=== PATIENT | female | born 1940 | race Caucasian/White ===

== ENCOUNTER → 2017-02-20 | Outpatient (CLI) | payer MEDICARE ==
--- NOTE | 2017-02-20 14:02 | RAD ---
Carotid ultrasound, 02/20/2017: History: Carotid artery stenosis, previous left endarterectomy Duplex evaluation of the carotid arteries in the neck was performed including grayscale, color-flow and spectral Doppler analysis. There is moderate intimal thickening in the common carotid arteries. The right common carotid artery demonstrates abnormal Doppler waveforms with a poor systolic upstroke and a low velocity of approximately 36 cm/s. By comparison the peak systolic velocity in the left common carotid artery is 108 cm/s. These findings suggest proximal stenotic disease. There is moderate atherosclerotic plaquing at the right carotid bifurcation. The plaques are partially calcified. No significant velocity acceleration is seen at or distal to that level to suggest high-grade stenosis. The internal carotid artery Doppler waveforms demonstrate diastolic flow reversal. On the left, there is mild atherosclerotic plaquing at the bifurcation. The peak systolic velocity in the internal carotid artery is 91 cm per sec with an end-diastolic velocity of 20 cm/s. There is no evidence of significant restenosis at the left bifurcation status post carotid endarterectomy. Antegrade flow is evident in the left vertebral artery in the neck. There is reversal of flow in the right vertebral artery. 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 IMPRESSION: 1. No evidence of significant restenosis at the left carotid bifurcation status post endarterectomy. 2. Abnormal low velocity blood flow in the right common carotid artery and intermittent reversal of blood flow in the right internal carotid artery, similar to that seen on 08/09/2014. The findings again suggest innominate or proximal right common carotid artery stenosis. 3. Ongoing reversal of flow in the right vertebral artery, again compatible with right subclavian and/or innominate artery stenosis. 4. CT angiography is suggested for further evaluation of this presumed right proximal stenotic disease, if clinically indicated. Note: Stenosis calculations for CT, MRA and conventional angiography are based upon determination of the distal ICA diameter in accordance with the NASCET methodology. Stenosis calculations for Doppler studies are derived from validated velocity criteria which are known to correlate with NASCET methodology of determining stenosis.
== END | disposition home or self-care (01) ==
LOC: US 10:40
PROVIDERS: ATTEND Family Medicine
DX: I65.23 Occlusion and stenosis of bilateral carotid arteries (principal); I77.1 Stricture of artery
CPT/HCPCS: 93880

== ENCOUNTER → 2017-03-03 | Outpatient (CLI) | payer MEDICARE ==
[~2017-03-03] MED LIST: IOHEXOL 300 MG/ML 75 ML VIAL. IV ONE
--- NOTE | 2017-03-03 16:55 | RAD ---
CTA neck with contrast dated 03/03/17. No comparison available. Clinical Indication: Pre-op to hip surgery. Technical factors: Contiguous helical acquisitions was performed from the aortic arch to the skull base during bolus injection of 75 cc of Omnipaque 300. Images were post processed and reformatted on the 3-D workstation. Findings: There is diffuse atheromatous calcification of the aortic arch. Normal origins of the left subclavian, left common carotid and the innominate artery which further bifurcate into right subclavian and right common carotid artery is seen. Scattered plaquing at the origins of the great vessels is seen. Ectatic left subclavian artery without significant narrowing. The left common carotid artery and its bifurcation appears normal. Ectatic tortuous carotid bulb and proximal left internal carotid artery. The left internal carotid artery is normal throughout its course. No focal stenosis. There is atheromatous calcification of the intracavernous portion. There is diffuse calcification of the innominate artery origin which bifurcates into right subclavian and right common carotid artery. There is diffuse moderate atheromatous calcification at the right subclavian artery origin and proximal subclavian artery estimated at approximately 70%. The distal right subclavian artery appears normal. The right common carotid artery demonstrates scattered atheromatous plaquing. There is extensive atheromatous calcification at the right carotid bulb and proximal internal carotid artery with a approximately 60-70% luminal narrowing. The remainder internal carotid artery is normal in course and caliber throughout however is asymmetrically smaller as compared to the left. Normal bilateral vertebral artery origins with Dominant left vertebral artery. Normal intraforaminal and intradural course is seen. Normal vertebrobasilar confluence. Visualized portion of the lung apices appear clear. Mild emphysematous changes are seen. Structures in the neck appear grossly normal. Normal bilateral thyroid glands. No neck lymphadenopathy or masses seen. Airway is preserved. Both parotid and submandibular salivary glands appear normal. Paranasal sinuses are clear. No abnormal enhancing lesion seen in the brain. Grade 1 anterolisthesis of C3 over C4 and grade 1 retrolisthesis of C5 over C6 with spondylotic changes and multilevel disc degenerative changes. Impression: 1. Scattered atheromatous plaquing involving the aortic arch and origin of great vessels. 2. Moderate atheromatous plaquing involving the right carotid bulb and proximal internal carotid artery with an estimated stenosis of approximately 60-70%. 3. Moderate plaquing in the proximal right superior artery with an estimated stenosis of approximately 70%. PQRS Compliance Statement: Note: Stenosis calculations for CT, MR and conventional angiography are based upon determination of the distal ICA diameter in accordance with the NASCET methodology. Stenosis calculations for doppler studies are derived from validated velocity criteria which are known to correlate with NASCET methodology of determining stenosis. PQRS Compliance Statement: One or more of the following individualized dose reduction techniques were utilized for this examination: 1. Automated exposure control 2. Adjustment of the mA and/or kV according to patient size 3. Use of iterative reconstruction technique
== END | disposition home or self-care (01) ==
LOC: CT 14:21
PROVIDERS: ATTEND Family Medicine
DX: I70.0 Atherosclerosis of aorta (principal); I25.10 Atherosclerotic heart disease of native coronary artery without angina pectoris
CPT/HCPCS: 70498; Q9967

== ENCOUNTER → 2017-11-25 | Outpatient (CLI) | payer MEDICARE ==
[2017-11-25 12:12] LABS: CREATININE 0.7 mg/dL (0.6-1.0); GFR 81.6
--- NOTE | 2017-11-25 15:30 | RAD ---
CTA OF THE NECK WITH AND WITHOUT CONTRAST WITH 3-D RECONSTRUCTION Clinical indications: Follow-up of right internal carotid artery stenosis and right subclavian artery stenosis. History of left carotid endarterectomy and right innominate stent graft. Technique: Noncontrast helical CT scanning of the neck from the lung apices to the base of the skull was performed. An appropriate localizer was identified and used as the point of reference for the region of interest during contrast injection. Following IV infusion of 75 cc of Omnipaque 300, helical CT scanning of the neck from the lung apices through the skullbase was performed. Axial and coronal and sagittal 2-D reconstructions were generated and reviewed on a computer monitor. Using a MIP algorithm, a 3-D reconstructed angiogram was generated and reviewed on a computer monitor. Measurements were made using the NASCET PQRS Compliance Statement: One or more of the following individualized dose reduction techniques were utilized for this examination: 1. Automated exposure control 2. Adjustment of the mA and/or kV according to patient size 3. Use of iterative reconstruction technique Measurements were made using the NASCET criteria. Comparison: CTA of the neck dated February 2017. Findings: The left common carotid and internal carotid and external carotid arteries are patent without significant stenosis. There is mild calcified atheromatous disease of the left carotid bulb and proximal ICA. Calcified atheromatous disease of the intracavernous portion of the left internal carotid artery is seen. There is calcified atheromatous disease of the right carotid bulb and proximal right ICA and ECA. There is an unchanged 60-70% stenosis of the proximal right ICA and 40% stenosis of the proximal right ECA. There is calcified plaque formation within the intracavernous portion of the right ICA. An innominate artery stent graft is present. This extends through calcified plaque narrowing of the origin of the innominate artery from the aortic arch. This has been placed in the interim. There is persistent narrowing of the transverse dimension of the origin of the innominate artery from the aortic arch from the calcified plaque and narrows the lumen to greater than 90%. There is a 50% narrowing due to calcified plaque involving the proximal right subclavian artery. The right vertebral artery is not opacified within the lower portion of the neck which is a new finding. It is opacified within the upper portion of the neck starting at the level of C3. This may be due to retrograde opacification. There is opacification of the proximal aspect of the right vertebral artery from it's origin to the level where it enters the transverse foramen at the level of C6. It is nonopacified from this level to the C3 level. In addition, the proximal aspect that is opacified appears smaller in caliber than it did on the previous study. Left vertebral artery is now dominant and is patent throughout the cervical course all the way up to the vertebral basilar confluence. The left subclavian artery is patent and there is mild calcified plaque of the proximal aspect less than 40%. IMPRESSION: There has been placement of an innominate artery stent graft since the previous study of March 03, 2017. However, there is still tight narrowing of greater than 90% involving the origin of the innominate artery from the aortic arch due to calcified plaque. There is a new finding of narrowing of the proximal right vertebral artery and segmental nonopacification from C3 through C6 segment of the foraminal portion of the cervical spine segment which is a new finding. This could be due to combined low flow from the innominate artery narrowing and retrograde flow down from above with indequate opacification of this segment of the right vertebral artery. Therefore, vertebral artery steal phenomenon may be present. Occlusion in this area is possible as well. Stable 60-70% narrowing of the proximal right ICA. 50% narrowing of the proximal right subclavian artery which has progressed.
== END | disposition home or self-care (01) ==
LOC: CT 11:00
PROVIDERS: ATTEND Surgery Vascular Surgery
DX: I65.21 Occlusion and stenosis of right carotid artery (principal); I10 Essential (primary) hypertension
CPT/HCPCS: 36415; 70498; 82565

== ENCOUNTER → 2018-08-19 | Outpatient (CLI) | payer MEDICARE ==
--- NOTE | 2018-08-19 17:05 | RAD ---
Ankle-brachial indices, 08/19/2018: HISTORY: Leg pain, smoking history, hypertension Resting BAO measurements were obtained at the dorsalis pedis artery levels. The right BAO is 0.80 while the left BAO is 0.71. IMPRESSION: Mildly decreased bilateral resting BAO measurements. Electronically signed by: Vasile Lyon MD (08/19/2018 5:02 PM) [facility]
== END | disposition home or self-care (01) ==
LOC: US 13:55
PROVIDERS: ATTEND Family Medicine
DX: I10 Essential (primary) hypertension (principal); M79.662 Pain in left lower leg; M79.661 Pain in right lower leg; Z87.891 Personal history of nicotine dependence
CPT/HCPCS: 93922

== ENCOUNTER → 2018-08-27 | Outpatient (CLI) | payer MEDICARE ==
--- NOTE | 2018-08-27 16:04 | RAD ---
Bilateral lower extremity venous duplex study 08/27/2018 1:00 PM Clinical History: DX: Bilateral Leg weakness Comparison: None available Technique: Using a combination of real time ultrasound imaging and color-flow and pulse Doppler imaging techniques along with graded compression and augmentation, duplex evaluation of the deep venous system of the both lower extremities was performed. Multiple images were obtained. Findings: There is no sonographic evidence of deep venous thrombosis involving the visualized deep venous structures of either lower extremity. Impression: No evidence of deep venous thrombosis involving either lower extremity Electronically signed by: Krishna Ruiz MD (08/27/2018 4:01 PM) [id number]
== END | disposition home or self-care (01) ==
LOC: US 12:36
PROVIDERS: ATTEND Family Medicine
DX: R29.898 Other symptoms and signs involving the musculoskeletal system (principal); R53.1 Weakness; R22.43 Localized swelling, mass and lump, lower limb, bilateral
CPT/HCPCS: 93970

== ENCOUNTER 2018-09-30 14:17 | Emergency (ER) | payer MEDICARE ==
[~2018-09-30] VITALS: Ht 170.2 cm; Wt 66.7 kg
[2018-09-30] MEDS ORDERED: OXYMETAZOLINE 0.05% NASAL SPRAY 15ML BOTTLE. NS ONE ×2 (14:31→14:45)
--- NOTE | 2018-09-30 14:59 | PHYS DOC ---
Adult General Chief Complaint Chief Complaint: NOSEBLEED HPI HPI 78-year-old female presents with 2-1/2 hour history of a nosebleed. She states she was picking inside of her nose and it started to bleed. She states she is on Plavix. She held pressure to her nose as well as put ice over the bridge of her nose which did seem to get some control of her bleeding. She denies any pain or blunt trauma.[] Review of Systems Review of Systems Constitutional: Denies fever or chills [] Eyes: Denies change in visual acuity, redness, or eye pain [] HENT: Per history of present illness[] Respiratory: Denies cough or shortness of breath [] Cardiovascular: No additional information not addressed in HPI [] GI: Denies abdominal pain, nausea, vomiting, bloody stools or diarrhea [] : Denies dysuria or hematuria [] Musculoskeletal: Denies back pain or joint pain [] Integument: Denies rash or skin lesions [] Neurologic: Denies headache, focal weakness or sensory changes [] Endocrine: Denies polyuria or polydipsia [] All other systems were reviewed and found to be within normal limits, except as documented in this note. Current Medications Current Medications Current Medications Medications (Trade) Dose Ordered Sig/Renetta Start Time Stop Time Status Last Admin Dose Admin Oxymetazoline HCl (Afrin) 2 spray 1X ONCE 09/30/18 14:45 09/30/18 14:46 DC 09/30/18 14:30 2 SPRAY Allergies Allergies Allergies Coded Allergies Type Severity Reaction Last Updated Verified No Known Drug Allergies 03/03/17 No Physical Exam Physical Exam Constitutional: Well developed, well nourished, no acute distress, non-toxic appearance. [] HENT: There are some clots in her left there was some very minimal acute bleeding on the anterior septum. [] Eyes: PERRLA, EOMI, conjunctiva normal, no discharge. [] Neck: Normal range of motion, no tenderness, supple, no stridor. [] Cardiovascular:Heart rate regular rhythm, no murmur [] Lungs & Thorax: Bilateral breath sounds clear to auscultation [] Abdomen: Bowel sounds normal, soft, no tenderness, no masses, no pulsatile masses. [] Skin: Warm, dry, no erythema, no rash. [] Back: No tenderness, no CVA tenderness. [] Extremities: No tenderness, no cyanosis, no clubbing, ROM intact, no edema. [] Neurologic: Alert and oriented X 3, normal motor function, normal sensory function, no focal deficits noted. [] Psychologic: Affect normal, judgement normal, mood normal. [] EKG EKG [] Radiology/Procedures Radiology/Procedures [] Course & Med Decision Making Course & Med Decision Making Pertinent Labs and Imaging studies reviewed. (See chart for details) [ED course: Evaluation reveals a 78-year-old female with a very minor nosebleed. We did clear the clots from her nasal passage and applied to sprays of Afrin in each nostril which did control her bleeding temporarily. However, she ended up needing to be packed so I packed a 7.5 rapid Rhino to the left naris which did alleviate her bleeding..] Dragon Disclaimer Dragon Disclaimer This electronic medical record was generated, in whole or in part, using a voice recognition dictation system. Departure Departure: Impression: Primary Impression: Epistaxis Disposition: 01 HOME, SELF-CARE Referrals: JULIA BALTAZAR MD (PCP) TU VAN DO Sep 30, 2018 14:59
[2018-09-30 15:10] VITALS: BP 120/67
== END 2018-09-30 15:45 | disposition home or self-care (01) ==
LOC: ER 14:17
DX: R04.0 Epistaxis (principal)
CPT/HCPCS: 30901; 99284

== ENCOUNTER → 2018-11-10 | Outpatient (CLI) | payer MEDICARE ==
--- NOTE | 2018-11-10 10:01 | CARD ---
MR#: [id number] Date of Study: 11/10/2018 Ordering Physician: COLBY GLOVER, Referring Physician: COLBY GLOVER, Tech: Alisia Smatr RDCS APPROVED REPORT EXAM: Two-dimensional and M-mode echocardiogram with Doppler and color Doppler. Other Information Quality : AverageHR: 77bpm Rhythm : NSR INDICATION PAD RISK FACTORS Smoking 2D DIMENSIONS RVDd2.9 (2.9-3.5cm)Left Atrium(2D)3.9 (1.6-4.0cm) IVSd1.6 (0.7-1.1cm)Aortic Root(2D)3.3 (2.0-3.7cm) LVDd3.7 (3.9-5.9cm)LVOT Diameter1.9 (1.8-2.4cm) PWd1.3 (0.7-1.1cm)LVDs1.7 (2.5-4.0cm) FS (%) 54.1 %SV50.5 ml LVEF(%)85.6 (>50%) M-Mode DIMENSIONS Left Atrium(MM)3.77 (2.5-4.0cm)Aortic Root3.55 (2.2-3.7cm) Aortic Valve AoV Peak Mike.235.2cm/sAoV VTI52.0cm AO Peak GR.22.1mmHgLVOT Peak Mike.157.8cm/s LVOT VTI 37.27cmAO Mean GR.13mmHg SIN (VMAX)1.18zf2GDE (VTI)1.96cm2 Mitral Valve MV E Piruqgdm434.8cm/sMV E Peak Gr.19mmHg MV DECEL [id number] A Eblbwtol078.0cm/s MV E Mean Gr.7mmHgE/A Ratio0.7 MV A [id number] Pulmonary Valve PV Peak Wlqzgdvh244.8cm/sPV Peak Grad.5mmHg Tricuspid Valve TR P. Fuqggkjp888yc/sRAP BTWETTBX5oxIb TR Peak Gr.31jyLvQDVS79rnQu Pulmonary Vein S1 Aubkmcog50.2cm/sD2 Xszvpkow62.3cm/s LEFT VENTRICLE The left ventricle cavity is small. Proximal septal thickening is noted. The left ventricle is hyperd ynamic. The Ejection Fraction is >70%. There is normal LV segmental wall motion. Transmitral Doppler flow pattern is abnormal. RIGHT VENTRICLE The right ventricle is normal size. There is normal right ventricular wall thickness. The right ventr icular systolic function is normal. ATRIA The left atrium is moderately dilated. The right atrium size is normal. The interatrial septum is int act with no evidence for an atrial septal defect or patent foramen ovale as noted on 2-D or Doppler i maging. AORTIC VALVE The aortic valve is moderately calcified.The aortic valve is trileaflet. Doppler and Color Flow revea led no significant aortic regurgitation. There is no significant aortic valvular stenosis. MITRAL VALVE Mitral annular calcification is severe. There is no evidence of mitral valve prolapse. There is moder ate mitral valve stenosis. Calculated mitral valve area is 1.8 cm2 with maximum pressure gradient of 19.4 mmHg and mean pressure gradient of 7.3 mmHg. Doppler and Color-flow revealed mild mitral regurgi tation. TRICUSPID VALVE The tricuspid valve is normal in structure and function. Doppler and Color Flow revealed trace tricus pid regurgitation.. There is mild pulmonary hypertension. The PA pressure was estimated at 40 mmHg. T here is no tricuspid valve prolapse or vegetation. There is no tricuspid valve stenosis. PULMONIC VALVE Pulmonic valve not well visualized. GREAT VESSELS The aortic root is normal in size. The ascending aorta is normal in size. The IVC is dilated but jeanne apses with inspiration. PERICARDIAL EFFUSION There is no evidence of significant pericardial effusion. Critical Notification Critical Value: No <Conclusion> The left ventricle is hyperdynamic. The Ejection Fraction is >70%. There is normal LV segmental wall motion. There is moderate mitral valve stenosis. Calculated mitral valve area is 1.8 cm2 with maximum pressur e gradient of 19.4 mmHg and mean pressure gradient of 7.3 mmHg. There is mild pulmonary hypertension. The PA pressure was estimated at 40 mmHg. Signed by : Colby Glover, Electronically Approved : 11/10/2018 09:59:50
--- NOTE | 2018-11-10 15:30 | RAD ---
Exam : Carotid Duplex with Grayscale Ultrasound and Spectral and Color Doppler Analysis 11/10/2018 3:09 PM Clinical Indications: Carotid stenosis. Comparison study: CT angiography of the neck November 25, 2017. RS Compliance Statement - Stenosis calculations for CT, MR and conventional angiography are based upon measurement of the distal ICA diameter in accordance with the NASCET methodology. Stenosis calculations for carotid ultrasound studies are derived from validated velocity criteria which are known to correlate with the NASCET methodology. Findings: The common, internal and external carotid arteries were examined by grayscale, color and spectral Doppler ultrasound. Diffuse atherosclerotic vascular disease is noted. Elevated velocities are seen within the proximal right common carotid artery. Reduced diastolic flow again noted in the right common carotid artery. Abnormal waveform morphology is seen in the mid and distal common carotid arteries. Relatively dense obstructive calcification is seen in the right carotid bulb. There are elevated velocities within the proximal right common carotid artery measuring up to 156 cm/s. Reversal of right vertebral artery flow noted. No high-grade visual stenosis is seen on the left. The following are the velocities and ratios in the carotid arteries on both sides: RIGHT ICA PV: 73cm/sec RIGHT CCA PV: 156cm/sec RIGHT ICA ED: 14cm/sec RIGHT IC/CCPV: Less than 2 RIGHT VERTEBRAL: Retrograde flow LEFT ICA PV: 88cm/sec LEFT CCA PV: 115cm/sec LEFT ICA ED: 14cm/sec LEFT IC/CCPV: Less than 2 LEFT VERTEBRAL: antegrade flow <50% ICA Stenosis: PSV < 125cm/s (EDV < 40cm/s; SVR < 2.0) 50-69% ICA Stenosis: PSV < 125-229cm/s (EDV 40-99cm/s; SVR 2.0-3.9) >70% ICA Stenosis: PSV > 230cm/s (EDV >100cm/s; SVR >4.0) Impression: 1.Retrograde flow in the right vertebral artery. Elevated velocities and abnormal waveforms in the right common carotid artery. Review of prior CT demonstrates occlusion or near occlusion in the right innominate artery. This likely persists with ongoing steal phenomenon. If there has been interval intervention, repeat CTA evaluation recommended 2 less than 50 percent stenosis of the left internal carotid artery by ultrasound criterion Electronically signed by: Krishna Ruiz MD (11/10/2018 3:26 PM) [id number]
== END | disposition home or self-care (01) ==
LOC: ECHO 09:03
PROVIDERS: ATTEND Internal Medicine Cardiovascular Disease
DX: I65.23 Occlusion and stenosis of bilateral carotid arteries (principal); I05.2 Rheumatic mitral stenosis with insufficiency; F17.200 Nicotine dependence, unspecified, uncomplicated; I27.20 Pulmonary hypertension, unspecified
CPT/HCPCS: 93306; 93880

== ENCOUNTER → 2018-12-02 | Outpatient (CLI) | payer MEDICARE ==
[~2018-12-02] MED LIST changes: +IOHEXOL 300 MG/ML 50 ML VIAL. IV ONE; -IOHEXOL 300 MG/ML 75 ML VIAL. IV ONE
--- NOTE | 2018-12-02 14:20 | RAD ---
Examination: CT angiography abdominal aorta with bilateral lower extremity runoff study HISTORY: Peripheral arterial disease. COMPARISON: None available Technique: Axial CT angiographic images of the abdominal aorta was performed and bilateral lower extremity runoff study with IV contrast. Coronal and sagittal 3-D MIP reformats are performed Exposure: One or more of the following individualized dose reduction techniques were utilized for this examination: 1. Automated exposure control 2. Adjustment of the mA and/or kV according to patient size 3. Use of iterative reconstruction technique Stenosis calculations for CT, MR, and conventional angiography are based upon measurements of the distal ICA diameter in accordance with the NASCET methodology. Stenosis calculations for carotid ultrasound studies are derived from validated velocity criteria which are known to correlate with the NASCET methodology. FINDINGS: The bibasilar lungs are clear. No evidence of free air identified in the abdomen. Mild decreased attenuation noted in the liver. There is a small 8 mm hyperdensity identified in the inferior right lobe of the liver nonspecific could be a small hemangioma. The visualized spleen, adrenals grossly appears unremarkable. The gallbladder is mildly distended. There is prominent appearing common bile measuring up to 1 cm in transverse dimension. There is minimal prominent appearing pancreatic duct. The small bowel is nondilated. Feces and gas noted in the colon. Severe abdominal aortic atherosclerosis. The celiac artery, superior mesenteric artery are patent. There is moderate atherosclerotic calcification identified at the origin of the celiac artery and the superior mesenteric artery. The inferior mesenteric artery is patent. There is severe atherosclerotic calcifications identified the origin of the left renal artery and moderate atherosclerotic calcification identified without in the right renal artery. The bilateral kidneys enhance symmetrically. There is severe atherosclerotic calcification identified in the bilateral common iliac, external and internal iliac arteries. There is severe calcification of the bilateral common femoral arteries with near complete occlusion of the right common iliac artery with atherosclerotic calcification best visualized on series 5 image #180. There is focal severe atherosclerotic calcifications identified in the proximal left common femoral artery. The mid and distal portions of the common femoral arteries are patent however there is severe atherosclerotic calcifications which limits evaluation. There is severe atherosclerotic calcification of the popliteal artery on the right throughout making evaluation the popliteal artery limited however the distal runoff vessels appears patent with moderate atherosclerotic calcifications bilaterally. There is severe atherosclerotic calcification of the left popliteal artery with patent appearing bilateral distal runoff vessels however evaluation is limited due to a atherosclerotic calcifications. IMPRESSION: 1. Severe atherosclerotic calcifications identified in the aorta, bilateral lower extremity arterial system. There is near complete occlusion and focal atherosclerotic calcifications of the right common femoral artery and the bilateral popliteal arteries however examination is limited due to severe atherosclerosis throughout the bilateral lower extremity arterial system recommend ultrasound for further evaluation for evaluation of velocities and catheter angiography. 2. Mild dilated appearing common bile duct. Distal common bile duct obstruction is not completely excluded. Recommend correlation with liver function tests. Electronically signed by: Carlitos Monroe MD (12/02/2018 2:16 PM) [facility]
--- NOTE | 2018-12-02 14:59 | RAD ---
Examination: CT angiography abdominal aorta with bilateral lower extremity runoff study HISTORY: Peripheral arterial disease. COMPARISON: None available Technique: Axial CT angiographic images of the abdominal aorta was performed and bilateral lower extremity runoff study with IV contrast. Coronal and sagittal 3-D MIP reformats are performed Exposure: One or more of the following individualized dose reduction techniques were utilized for this examination: 1. Automated exposure control 2. Adjustment of the mA and/or kV according to patient size 3. Use of iterative reconstruction technique Stenosis calculations for CT, MR, and conventional angiography are based upon measurements of the distal ICA diameter in accordance with the NASCET methodology. Stenosis calculations for carotid ultrasound studies are derived from validated velocity criteria which are known to correlate with the NASCET methodology. FINDINGS: The bibasilar lungs are clear. No evidence of free air identified in the abdomen. Mild decreased attenuation noted in the liver. There is a small 8 mm hyperdensity identified in the inferior right lobe of the liver nonspecific could be a small hemangioma. The visualized spleen, adrenals grossly appears unremarkable. The gallbladder is mildly distended. There is prominent appearing common bile measuring up to 1 cm in transverse dimension. There is minimal prominent appearing pancreatic duct. The small bowel is nondilated. Feces and gas noted in the colon. Severe abdominal aortic atherosclerosis. The celiac artery, superior mesenteric artery are patent. There is moderate atherosclerotic calcification identified at the origin of the celiac artery and the superior mesenteric artery. The inferior mesenteric artery is patent. There is severe atherosclerotic calcifications identified the origin of the left renal artery and moderate atherosclerotic calcification identified without in the right renal artery. The bilateral kidneys enhance symmetrically. There is severe atherosclerotic calcification identified in the bilateral common iliac, external and internal iliac arteries. There is severe calcification of the bilateral common femoral arteries with near complete occlusion of the right common iliac artery with atherosclerotic calcification best visualized on series 5 image #180. There is focal severe atherosclerotic calcifications identified in the proximal left common femoral artery. The mid and distal portions of the common femoral arteries are patent however there is severe atherosclerotic calcifications which limits evaluation. There is severe atherosclerotic calcification of the popliteal artery on the right throughout making evaluation the popliteal artery limited however the distal runoff vessels appears patent with moderate atherosclerotic calcifications bilaterally. There is severe atherosclerotic calcification of the left popliteal artery with patent appearing bilateral distal runoff vessels however evaluation is limited due to a atherosclerotic calcifications. IMPRESSION: 1. Severe atherosclerotic calcifications identified in the aorta, bilateral lower extremity arterial system. There is near complete occlusion and focal atherosclerotic calcifications of the right common femoral artery and the bilateral popliteal arteries however examination is limited due to severe atheroscle -- rosis throughout the bilateral lower extremity arterial system recommend ultrasound for further evaluation for evaluation of velocities and catheter angiography. 2. Mild dilated appearing common bile duct. Distal common bile duct obstruction is not completely excluded. Recommend correlation with liver function tests. Electronically signed by: Carlitos Monroe MD (12/02/2018 2:16 PM) [facility] DICTATED AND SIGNED BY: CARLITOS MONROE MD DATE: 12/02/18 1403 CC: COLBY GLOVER MD; JULIA BALTAZAR MD [facility]
== END | disposition home or self-care (01) ==
LOC: CT 12:57
PROVIDERS: ATTEND Internal Medicine Cardiovascular Disease
DX: I70.203 Unspecified atherosclerosis of native arteries of extremities, bilateral legs (principal); I74.5 Embolism and thrombosis of iliac artery; I70.0 Atherosclerosis of aorta; I70.8 Atherosclerosis of other arteries; I70.1 Atherosclerosis of renal artery
CPT/HCPCS: 75635

== ENCOUNTER → 2019-02-11 | Outpatient (CLI) | payer MEDICARE ==
[~2019-02-11] MED LIST changes: -IOHEXOL 300 MG/ML 50 ML VIAL. IV ONE; +REGADENOSON 0.4 MG/5 ML DISP.SYRIN. IV ONE
--- NOTE | 2019-02-11 13:25 | RAD ---
MR#: [id number] Date of Study: 02/11/2019 Ordering Physician: COLBY GLOVER, Referring Physician: ИРИНА QUEZADA Tech: BALTAZAR Bruner ARRT (R) (N) APPROVED REPORT Test Type: Pharmacological Stress Nurse/Tech: ALLY Smith Test Indications: cad Cardiac History: See Electronic Medical Record Medications: See Electronic Medical Record Medical History: See Electronic Medical Record Resting ECG: SR. LAFB, ASMI age undetermined Resting Heart Rate: 72 bpm Resting Blood Pressure: 144/60mmHg Pretest Chest Pain: None Nurse/Tech Notes Consent: The procedure was explained to the patient in lay terms. Informed consent was witnessed. Pelon eout was entered into [employer]. History and Stress Test performed by BALTAZAR Bruner ARRT (R) (N) Pharm. Details Pharmacologic stress testing was performed using 0.4mg per 5ml of regadenoson given intravenously ove r 7-10 seconds. Stress Symptoms no cp, no acute changes POST EXERCISE Reason for Termination: Infusion complete Target HR: No Max HR: 92 bpm 75% of Maximum Predicted HR: 122 bpm Exercise duration: 6 min:sec, Stage Max Blood Pressure: 146/60mmHg Blood Pressure response to exercise: Normal blood pressure response during stress. Chest Pain: No. Arrhythmia: No. ST Change: No. INTERPRETATION Stress EKG Conclusion: Baseline EKG showed sinus rhythm with old septal infarct. Nondiagnostic change s at peak stress. No arrhythmias. Imaging Protocol IMAGE PROTOCOL: Rest Tc-99m/stress Tc-99m 1 day Rest: Stress: Viability: Radiopharm.Tc99m HhdmgpsudCc19q Sestamibi Giga69yEw 33mCi Img Date 02/11/2019 02/11/2019 Inj-Img [id number]. 60min. Rest Admin Site:IV - Right AntecubitalAdministrator: BALTAZAR Bruner ARRT (R)(N) Stress Admin Site: IV - Right AntecubitalAdministrator: BALTAZAR Bruner ARRT (R)(N) STRESS DATA End Diast. Vol.123.0mlAv. Heart Rate84.0bpm LVEDV index BSA3.0mlCardiac Output0.2L/min End Syst. Vol.34.0mlCO Index BSA7.5L/min LVESV index BSA1.0mlMyocardial Dasu208.0g Eject. Lqqnmptr21.0% Stress Rates Pk. Fill Rate2.80EDV/secLVtime Pk. Fill 129.05msec Pk. Empty Rate3.56ESV/secLVtime Pk. Imkqz293.76msec 10/29 Pk. Fill1.48EDV/sec Stress Scores Regional WT0.00Summed WT12.00 Regional WM0.00Summed WM3.00 LV Perfusion Scintigraphic images showed small fixed defect involving the apical wall consistent with previous sukhdev cardial infarction without any reversibility. Wall Motion Normal left ventricular systolic function with ejection fraction calculated at 72%. LV Perf. Quant 17 Seg. SSS5.00 17 Seg. SRS4.00 17 Seg. SDS1.00 Stress Defect Extent (% LAD)15.00Rest Defect Extent (% LAD)16.90Rev. Defect Extent (% LAD)0.00 Stress Defect Extent (% LCX) 0.00Rest Defect Extent (% LCX)0.00Rev. Defect Extent (% LCX)0.00 Stress Defect Extent (% RCA)3.30Rest Defect Extent (% RCA)0.00Rev. Defect Extent (% RCA)0.00 Stress Defect Extent (% SUKHDEV)9.60Rest Defect Extent (% SUKHDEV)8.30Rev. Defect Extent (% SUKHDEV)0.40 Conclusion 1. Regadenoson cardioisotope stress test showed small apical wall infarct without any ischemia. 2. Normal left ventricular systolic function with ejection fraction calculated at 72%. 3. Low risk for cardiac events. Signed by : Robert Walsh, Electronically Approved : 02/11/2019 13:25:40
== END | disposition home or self-care (01) ==
LOC: NM 07:43
PROVIDERS: ATTEND Internal Medicine Cardiovascular Disease
DX: I25.10 Atherosclerotic heart disease of native coronary artery without angina pectoris (principal); I25.2 Old myocardial infarction; I10 Essential (primary) hypertension; Z79.01 Long term (current) use of anticoagulants; Z87.891 Personal history of nicotine dependence
CPT/HCPCS: 78452; 93017; A9500; J2785; 96375; 96376

== ENCOUNTER → 2019-05-17 | Outpatient (CLI) | payer MEDICARE ==
[2019-05-17 09:08] LABS: BASO % 0 % (0-3); EOS % 0 % (0-3); HEMATOCRIT 28.9 % (36.0-47.0); HEMOGLOBIN 9.5 g/dL (12.0-15.5); LYMPH # 0.8 x10^3/uL (1.0-4.8); LYMPH % 11 % (24-48); MEAN CORPUSCULAR HEMOGLOBIN 31 pg (25-35); MEAN CORPUSCULAR HGB CONC 33 g/dL (31-37); MEAN CORPUSCULAR VOLUME 95 fL (79-100); MONO # 0.6 x10^3/uL (0.0-1.1); MONO % 9 % (0-9); NEUT # 5.8 x10^3uL (1.8-7.7); NEUT % 80 % (31-73); PLATELET COUNT 335 x10^3/uL (140-400); RED BLOOD COUNT 3.06 x10^6/uL (3.50-5.40); RED CELL DISTRIBUTION WIDTH 15.2 % (11.5-14.5); WHITE BLOOD COUNT 7.2 x10^3/uL (4.0-11.0)
== END | disposition home or self-care (01) ==
LOC: LAB 08:12
PROVIDERS: ATTEND Internal Medicine
DX: M86.9 Osteomyelitis, unspecified (principal)
CPT/HCPCS: 36415; 85025

== ENCOUNTER 2019-07-12 14:06 | Emergency (ER) | payer MEDICARE ==
[~2019-07-12] VITALS: Ht 170.2 cm; Wt 76.0 kg
[2019-07-12] MEDS ORDERED: IPRATRPIUM/ALBUTEROL 0.5/2.5MG 3 ML NEBU. NEB ONE (14:15)
[2019-07-12 14:39] LABS: BASO % 0 % (0-3); EOS % 0 % (0-3); HEMATOCRIT 35.4 % (36.0-47.0); HEMOGLOBIN 11.4 g/dL (12.0-15.5); LYMPH # 0.6 x10^3/uL (1.0-4.8); LYMPH % 10 % (24-48); MEAN CORPUSCULAR HEMOGLOBIN 31 pg (25-35); MEAN CORPUSCULAR HGB CONC 32 g/dL (31-37); MEAN CORPUSCULAR VOLUME 95 fL (79-100); MONO # 0.5 x10^3/uL (0.0-1.1); MONO % 9 % (0-9); NEUT # 5.2 x10^3uL (1.8-7.7); NEUT % 82 % (31-73); PLATELET COUNT 323 x10^3/uL (140-400); RED BLOOD COUNT 3.72 x10^6/uL (3.50-5.40); RED CELL DISTRIBUTION WIDTH 17.6 % (11.5-14.5); WHITE BLOOD COUNT 6.3 x10^3/uL (4.0-11.0)
[2019-07-12 14:45] LABS: BGAS PH 7.36 (7.35-7.45)
[2019-07-12] MEDS ORDERED: FUROSEMIDE 40 MG/4 ML VIAL IVP ONE (14:45)
[2019-07-12] MEDS ORDERED: methylPREDNISolone SOD SUCC PF 125 MG/2 ML VIAL. IV ONE (14:45)
--- NOTE | 2019-07-12 14:48 | PHYS DOC ---
Past History Past Medical History: Hypertension Past Surgical History: Hip Replacement Alcohol Use: None Drug Use: None Adult General Chief Complaint Chief Complaint: short of breath HPI HPI 78-year-old female arrives by POV with shortness of breath. Patient states that she has had worsening shortness of breath for the last few days. She is also had increased lower extremity swelling up into her upper legs. Patient does not official diagnosis of COPD, has been a lifelong smoker. She is speaking in complete sentences. She is able to ambulate with her walker. She denies fever or chills. She denies chest pain or diaphoresis. Review of Systems Review of Systems Constitutional: Denies fever or chills [] Eyes: Denies change in visual acuity, redness, or eye pain [] HENT: Denies nasal congestion or sore throat [] Respiratory: Shortness of breath [] Cardiovascular: No additional information not addressed in HPI. Lower extremity swelling [] GI: Denies abdominal pain, nausea, vomiting, bloody stools or diarrhea [] : Denies dysuria or hematuria [] Musculoskeletal: Denies back pain or joint pain [] Integument: Denies rash or skin lesions [] Neurologic: Denies headache, focal weakness or sensory changes [] Endocrine: Denies polyuria or polydipsia [] All other systems were reviewed and found to be within normal limits, except as documented in this note. Current Medications Current Medications Current Medications Medications (Trade) Dose Ordered Sig/Renetta Start Time Stop Time Status Last Admin Dose Admin Albuterol/ Ipratropium (Duoneb) 3 ml 1X ONCE 07/12/19 14:15 07/12/19 14:29 DC Furosemide (Lasix) 40 mg 1X ONCE 07/12/19 14:45 07/12/19 14:46 Allergies Allergies Allergies Coded Allergies Type Severity Reaction Last Updated Verified No Known Drug Allergies 03/03/17 No Physical Exam Physical Exam Constitutional: Well developed, well nourished, no acute distress, non-toxic appearance. [] HENT: Normocephalic, atraumatic, bilateral external ears normal, oropharynx moist, no oral exudates, nose normal. [] Eyes: PERRLA, EOMI, conjunctiva normal, no discharge. [] Neck: Normal range of motion, no tenderness, supple, no stridor. [] Cardiovascular:Heart rate regular rhythm, no murmur [] Lungs & Thorax: Bilateral breath sounds with diffuse expiratory wheezing and overall decreased breath sounds.[] Abdomen: Bowel sounds normal, soft, no tenderness, no masses, no pulsatile masses. [] Skin: Warm, dry, no erythema, no rash. [] Back: No tenderness, no CVA tenderness. [] Extremities: No tenderness, no cyanosis, no clubbing, ROM intact, no edema. [] Neurologic: Alert and oriented X 3, normal motor function, normal sensory function, no focal deficits noted. [] Psychologic: Affect normal, judgement normal, mood normal. [] Current Patient Data Lab Results Laboratory Tests Test 07/12/19 14:17 White Blood Count 6.3 x10^3/uL (4.0-11.0) Red Blood Count 3.72 x10^6/uL (3.50-5.40) Hemoglobin 11.4 g/dL (12.0-15.5) L Hematocrit 35.4 % (36.0-47.0) L Mean Corpuscular Volume 95 fL (79-100) Mean Corpuscular Hemoglobin 31 pg (25-35) Mean Corpuscular Hemoglobin Concent 32 g/dL (31-37) Red Cell Distribution Width 17.6 % (11.5-14.5) H Platelet Count 323 x10^3/uL (140-400) Neutrophils (%) (Auto) 82 % (31-73) H Lymphocytes (%) (Auto) 10 % (24-48) L Monocytes (%) (Auto) 9 % (0-9) Eosinophils (%) (Auto) 0 % (0-3) Basophils (%) (Auto) 0 % (0-3) Neutrophils # (Auto) 5.2 x10^3uL (1.8-7.7) Lymphocytes # (Auto) 0.6 x10^3/uL (1.0-4.8) L Monocytes # (Auto) 0.5 x10^3/uL (0.0-1.1) Eosinophils # (Auto) 0.0 x10^3/uL (0.0-0.7) Basophils # (Auto) 0.0 x10^3/uL (0.0-0.2) EKG EKG [] Radiology/Procedures Radiology/Procedures [] Impressions: EXAM: AP View of the chest DATE: 07/12/2019 2:15 PM INDICATION: Shortness of breath COMPARISON: No Prior FINDINGS: Moderate cardiac megaly. Atherosclerotic calcifications of the tortuous aorta are seen. Bilateral pleural effusions. Lung base airspace opacities are seen. Interstitial prominence bilaterally. No pneumothorax. IMPRESSION: 1. Primarily with bilateral pleural effusions, interstitial prominence and perihilar predominant airspace opacities likely from pulmonary edema. 2. Bibasilar airspace opacities, favored to represent atelectasis given the pleural effusions although superimposed infection/consolidative process such as pneumonia would have similar appearance. Electronically signed by: Sammy Doe MD (07/12/2019 3:13 PM) [facility] DICTATED AND SIGNED BY: SAMMY DOE MD DATE: 07/12/19 [id number] CC: CHANDLER PAT DO; JULIA BALTAZAR MD ~ Course & Med Decision Making Course & Med Decision Making Pertinent Labs and Imaging studies reviewed. (See chart for details) On arrival, the patient's oxygen saturation was in the mid 60s. She increased on 15 L 100%. Her ABG shows pH is 7.357, CO2 58.3, O2 58. We will try to titrate her oxygen to affect. Patient appears to be suffering from pulmonary edema due to her excess fluid. I have ordered 40 mg of Lasix by IV. Her chest x-ray is suggestive of the same. See official report for details. Patient's proBNP is over 2600. She is currently on 15 L of 40% oxygen were 92% O2 sat. I'm concerned that this may suppress her respiratory drive. We will lower her supplemental oxygen and she for an O2 sat of 89-90% versus 92. I will admit her to the hospital. I spoke with the hospitalist at [facility], Dr. Chris and he has accepted the patient for transfer and admission to the ICU. Patient is in agreement with this plan. [] Dragon Disclaimer Dragon Disclaimer This electronic medical record was generated, in whole or in part, using a voice recognition dictation system. Departure Departure: Impression: Primary Impression: Pulmonary edema Additional Impression: CHF exacerbation Disposition: XFER SHT-TRM HOSP Condition: GUARDED Referrals: JULIA BALTAZAR MD (PCP) Problem Qualifiers Primary Impression: Pulmonary edema Chronicity: acute Qualified Codes: J81.0 - Acute pulmonary edema Additional Impression: CHF exacerbation Heart failure type: systolic Qualified Codes: I50.23 - Acute on chronic systolic (congestive) heart failure CHANDLER PAT DO Jul 12, 2019 14:48
--- NOTE | 2019-07-12 15:16 | RAD ---
EXAM: AP View of the chest DATE: 07/12/2019 2:15 PM INDICATION: Shortness of breath COMPARISON: No Prior FINDINGS: Moderate cardiac megaly. Atherosclerotic calcifications of the tortuous aorta are seen. Bilateral pleural effusions. Lung base airspace opacities are seen. Interstitial prominence bilaterally. No pneumothorax. IMPRESSION: 1. Primarily with bilateral pleural effusions, interstitial prominence and perihilar predominant airspace opacities likely from pulmonary edema. 2. Bibasilar airspace opacities, favored to represent atelectasis given the pleural effusions although superimposed infection/consolidative process such as pneumonia would have similar appearance. Electronically signed by: Sammy Fuentes MD (07/12/2019 3:13 PM) [facility]
[2019-07-12 15:26] LABS: ALBUMIN 2.9 g/dL (3.4-5.0); ALBUMIN/GLOBULIN RATIO 0.9 (1.0-1.7); CALCIUM 9.3 mg/dL (8.5-10.1); CREATININE 1.1 mg/dL (0.6-1.0); GFR 48.3; POTASSIUM 3.3 mmol/L (3.5-5.1); TOTAL BILIRUBIN 0.3 mg/dL (0.2-1.0); TOTAL PROTEIN 6.2 g/dL (6.4-8.2)
[2019-07-12 16:31] LABS: BACTERIA,URINE MANY /HPF (0-FEW); BILIRUBIN,URINE NEG (NEG); CLARITY,URINE HAZY; COLOR,URINE YELLOW; GLUCOSE,URINE NEG (NEG); NITRITE,URINE POS (NEG); RBC,URINE OCC /HPF (0-2); UROBILINOGEN,URINE 0.2 mg/dL (0.2 mg/dL); WBC,URINE 20-40 /HPF (0-4)
[2019-07-12 16:32] LABS: SQUAMOUS EPITHELIAL CELL,UR FEW /LPF; YEAST,URINE PRESENT /HPF
--- NOTE | 2019-07-12 16:49 | EKG ---
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
[2019-07-12] MEDS ORDERED: POTASSIUM CHLORIDE 20 MEQ TABLET.ER. PO ONE (19:00)
[2019-07-12] MEDS ORDERED: ALBUTEROL SULFATE 8GM INHALER. INH ONE (20:45)
[2019-07-12 22:54] VITALS: BP 131/71
== END 2019-07-12 22:54 | disposition short-term general hospital (02) ==
LOC: ER 14:06
DX: I11.0 Hypertensive heart disease with heart failure (principal); I50.23 Acute on chronic systolic (congestive) heart failure; Z98.890 Other specified postprocedural states
CPT/HCPCS: 36415; 51702; 71045; 80053; 81001; 82803; 83880; 84484; 85025; 87086; 93005; 94640; 96374; 96375; 99285; J1940; J2930; J7613; J7620

== ENCOUNTER → 2019-08-30 | Outpatient (CLI) | payer MEDICARE ==
--- NOTE | 2019-08-30 13:04 | RAD ---
EXAM: Chest, 2 views. HISTORY: Diastolic heart failure. COMPARISON: 07/12/2019 FINDINGS: 2 views of chest are obtained. There is no infiltrate, pleural effusion or pneumothorax. There is a stable prominent cardiac silhouette. There is dense calcification of the mitral valve annulus. There is a tortuous thoracic aorta. There is hyperinflation likely due to emphysema. There are few calcified granulomas. IMPRESSION: 1. No acute pulmonary finding. 2. Hyperinflation suggesting emphysema. 3. Stable prominent cardiac silhouette. Electronically signed by: Isabell Cunha MD (08/30/2019 1:01 PM) [place] [id number]
== END | disposition home or self-care (01) ==
LOC: DXRAD 10:35
PROVIDERS: ATTEND Internal Medicine Cardiovascular Disease
DX: I34.8 Other nonrheumatic mitral valve disorders (principal); J84.10 Pulmonary fibrosis, unspecified; I50.30 Unspecified diastolic (congestive) heart failure
CPT/HCPCS: 71046

== ENCOUNTER → 2020-11-24 | Outpatient (CLI) | payer MEDICARE ==
--- NOTE | 2020-11-30 08:15 | RAD ---
PROCEDURE: MG 2D BILAT SCREENING HISTORY: The patient is 80 years old and is seen for Reason: SCREENING / Spl. Instructions: / Histor y: . COMPARISON: 07/29/2019 TECHNIQUE: CC and MLO views of both breasts were obtained. Images were processed by the iFit computer-aided detection system. DENSITY: The breast parenchyma is heterogeneously dense. This may lower the sensitivity of mammograph y. FINDINGS: No developing mass, suspicious calcifications or architectural distortion. IMPRESSION: Negative. No evidence of malignancy. Recommend annual screening mammograms per [employer] guidelines. BI-RADS category 1 Negative Patient entered into a reminder system for annual screening mammogram. Electronically signed by: Marium Perkins MD (11/30/2020 8:12 AM) [id number]
== END ==
LOC: MAMMO 09:18
PROVIDERS: ATTEND Family Medicine
DX: Z12.31 Encounter for screening mammogram for malignant neoplasm of breast (principal)
CPT/HCPCS: 77067

== ENCOUNTER 2021-04-10 16:29 | Emergency (ER) | payer MEDICARE ==
[~2021-04-10] VITALS: Ht 170.2 cm; Wt 76.0 kg
[2021-04-10] MEDS ORDERED: LIDOCAINE 1%/EPI 1:100,000 20 ML VIAL. IJ ONE (16:45)
--- NOTE | 2021-04-10 17:07 | RAD ---
2 view study of the right tibia and fibula Clinical indications: Laceration. Evaluation for retained foreign body. FINDINGS: No acute fracture or dislocation or lytic process is seen. There are radiopaque nodules wit hin the deep central aspect of the proximal calf. There is one radiopacity which has a more linear tr am tract appearance. Therefore, this may represent vascular calcifications. Correlation with location of laceration injury is recommended to exclude foreign body in this area. There is increased focal d ensity of the lateral aspect of the right proximal to mid calf. This may represent soft tissue hemato ma associated with the laceration injury. There are radiopacities of the right knee area which appear s to represent an overlying garment. IMPRESSION: No acute fracture. Radiopacities of the upper central calf. See discussion above. Clinical correlation is needed. Soft tissue hematoma. Electronically signed by: Sunny Hamlin MD (04/10/2021 5:05 PM) [id number]
[2021-04-10] MEDS ORDERED: NEOMY/BACITR/POLYMYXIN OINT PACKET. TP ONE (17:37)
[2021-04-10] MEDS ORDERED: DIPH,PERTUSS(ACELL),TET VAC/PF 0.5 ML SYRINGE. VAX IM ONE ×2 (17:37→17:45)
--- NOTE | 2021-04-10 17:43 | PHYS DOC ---
Past History Past Medical History: CHF, COPD, Hypertension Past Surgical History: Hip Replacement Smoking: Cigarettes Additional Smoking Information: 10/28 PPD Alcohol Use: None Drug Use: None General Adult EDM: Chief Complaint: LACERATION/AVULSION HPI: HPI: 80-year-old female presents with report of laceration to anterior aspect of right dickinson which occurred at approximately 1030 this morning. Patient reports she gotten out of her car at the liquor store and thinks she caught the corner of the door with her leg. Patient noticed on returning back to her vehicle that she was bleeding. Patient denies use of blood thinners. Reports last tetanus shot greater than 5 years ago. Review of Systems: Review of Systems: Constitutional: Denies fever or chills Musculoskeletal: Denies back pain or joint pain Integument: Reports laceration to right anterior lower extremity Neurologic: Denies headache, focal weakness or sensory changes Complete systems were reviewed and found to be within normal limits, except as documented in this note. Current Medications: Current Meds: Current Medications Medications (Trade) Dose Ordered Sig/Renetta Start Time Stop Time Status Last Admin Dose Admin Lidocaine/ Epinephrine (Xylocaine 1%-Epi 1:100,000) 20 ml 1X ONCE 04/10/21 16:45 04/10/21 17:07 DC Allergies: Allergies: Allergies Coded Allergies Type Severity Reaction Last Updated Verified No Known Drug Allergies 03/03/17 No Physical Exam: PE: Constitutional: Well developed, well nourished, no acute distress, non-toxic appearance HENT: Normocephalic, atraumatic Eyes: Conjunctiva normal, no discharge Neck: Normal range of motion, supple Lungs & Thorax: No respiratory distress, equal chest rise and fall Abdomen: Soft, no tenderness Skin: Warm, dry, no erythema, 10 cm flap laceration to right anterior dickinson Extremities: No tenderness, ROM intact, no edema Neurologic: Alert and oriented X 3, no focal deficits noted Psychologic: Affect normal, judgment normal Current Patient Data: Vital Signs: Vital Signs Date Time Temp Pulse Resp B/P (MAP) Pulse Ox O2 Delivery O2 Flow Rate FiO2 04/10/21 16:46 97.5 88 26 140/66 (90) 88 Room Air EKG: EKG: [] Radiology/Procedures: Radiology/Procedures: PROCEDURE: TIBIA FIBULA RIGHT 2 view study of the right tibia and fibula Clinical indications: Laceration. Evaluation for retained foreign body. FINDINGS: No acute fracture or dislocation or lytic process is seen. There are radiopaque nodules within the deep central aspect of the proximal calf. There is one radiopacity which has a more linear tram tract appearance. Therefore, this may represent vascular calcifications. Correlation with location of laceration injury is recommended to exclude foreign body in this area. There is increased focal density of the lateral aspect of the right proximal to mid calf. This may represent soft tissue hematoma associated with the laceration injury. There are radiopacities of the right knee area which appears to represent an overlying garment. IMPRESSION: No acute fracture. Radiopacities of the upper central calf. See discussion above. Clinical correlation is needed. Soft tissue hematoma. Electronically signed by: Sunny Hamlin MD (04/10/2021 5:05 PM) [id number] Heart Score: C/O Chest Pain: N/A Course & Med Decision Making: Course & Med Decision Making Pertinent Imaging studies reviewed. (See chart for details) Patient presents with laceration to right anterior lower extremity. Tetanus updated. X-ray obtained without signs of retained foreign body. Laceration cleaned, irrigated, repaired, and dressed. Fernando bandage applied for protection of sutured wound and prevention of seroma. Patient stable for discharge with outpatient follow-up with PCP. Discussed findings and plan with patient, who acknowledges understanding and agreement. Ray Disclaimer: Ray Disclaimer: This electronic medical record was generated, in whole or in part, using a voice recognition dictation system. Splinting Splinting : Location: Right LE Pre-Made Type: FERNANDO bandage Pre-Proc Neuro Vasc Exam: normal Post-Proc Neuro Vasc Exam: normal, unchanged from pre-exam Laceration/Wound Repair Laceration/Wound Repair : Wound Location: lower extremity (right) Wound's Depth, Shape: flap Wound Length (cm): 10 Wound Explored: no foreign body removed Irrigated w/ Saline (ccs): 200 Anesthesia: Lidocaine w/ Epi (1%) Volume Anesthetic (ccs): 8 Wound Debrided: moderate Wound Repaired With: sutures Suture Size/Type: 4:0, nylon Number of Sutures: 15 (simple interrupted x 12horizontal mattress x 3) Sterile Dressing Applied?: Yes Splint Applied?: Yes Type of Splint Applied: FERNANDO bandage Progress Verbal consent obtained. Time out performed. Hand hygiene utilized. Wound cleaned with ChloraPrep. Anesthesia obtained via a 25-gauge hypodermic needle with (8) mL's of lidocaine 2% with epinephrine. Copious irrigation performed. Wound well approximated with 4-0 Nylon x 3 horizontal mattress and 12 simple interrupted sutures. Empiric antibiotic ointment applied prior to sterile dressing. FERNANDO bandage applied for protection and compression of sutured wound. Patient tolerated procedure well and without difficulty. Departure Departure: Impression: Primary Impression: Laceration Disposition: HOME / SELF CARE / HOMELESS Condition: STABLE Referrals: JULIA BALTAZAR MD (PCP) Patient Instructions: Laceration Care, Adult, [id number] Additional Instructions: Do not soak your wound. You may shower. Clean wound daily with soap and water. Change dressing 2 times daily. Use over the counter antibiotic ointment with each dressing change. Apply FERNANDO bandage over dressings to help protect sutures and prevent a seroma (collection of fluid) from occurring. Sutures need to be removed in 10-14 days. Present to your family doctor or local urgent care for removal. You may also present to the ED but it will be an additional visit/charge. After suture removal you may use Vitamin E ointment to soften the wound and prevent scarring. May use over the counter Tylenol and/or Ibuprofen for pain or discomfort. JANETH SAWYER DO Apr 10, 2021 17:43
[2021-04-10 17:55] VITALS: BP 111/72
== END 2021-04-10 17:55 | disposition home or self-care (01) ==
LOC: ER 16:29
DX: S81.811A Laceration without foreign body, right lower leg, initial encounter (principal); J44.9 Chronic obstructive pulmonary disease, unspecified; I11.0 Hypertensive heart disease with heart failure; I50.9 Heart failure, unspecified; F17.210 Nicotine dependence, cigarettes, uncomplicated; W26.8XXA Contact with other sharp object(s), not elsewhere classified, initial encounter; Y93.89 Activity, other specified; Y92.89 Other specified places as the place of occurrence of the external cause; Y99.8 Other external cause status
CPT/HCPCS: 12004; 73590; 90471; 90715; 99283

== ENCOUNTER 2021-04-13 13:34 | Inpatient (IN) | payer MEDICARE ==
[~2021-04-13] VITALS: Ht 170.2 cm; Wt 66.4 kg
[2021-04-13] VITALS (8 sets, daily range): BP systolic 108–138; BP diastolic 55–103
--- NOTE | 2021-04-13 14:09 | PHYS DOC ---
Past History Past Medical History: CHF, COPD, Hypertension Past Surgical History: Hip Replacement Smoking: Cigarettes Alcohol Use: None Drug Use: None General Adult EDM: Chief Complaint: SHORTNESS OF BREATH HPI: HPI: 80-year-old female presents with 2-day history of shortness of breath. The patient feels like she may be wheezing. She definitely feels like she is more short of breath yesterday and worse again today. The patient has a neighbor who checks on her and helps care for her. When she came by today and looked at the patient's right lower leg sutures she was concerned about cellulitis. The patient had the sutures placed in this facility a couple of days ago after a laceration. There was delayed closing. Patient denies fever or chills. She denies chest pain or diaphoresis. He has an existing dry skin disorder. Review of Systems: Review of Systems: Constitutional: Denies fever or chills Eyes: Denies change in visual acuity HENT: Denies nasal congestion or sore throat Respiratory: shortness of breath Cardiovascular: Denies chest pain or edema GI: Denies abdominal pain, nausea, vomiting, bloody stools or diarrhea : Denies dysuria Musculoskeletal: Denies back pain or joint pain Integument: Laceration with sutures right lower leg, redness Neurologic: Denies headache, focal weakness or sensory changes Endocrine: Denies polyuria or polydipsia Lymphatic: Denies swollen glands Psychiatric: Denies depression or anxiety Allergies: Allergies: Allergies Coded Allergies Type Severity Reaction Last Updated Verified No Known Drug Allergies 03/03/17 No Physical Exam: PE: Constitutional: Well developed, well nourished, no acute distress, non-toxic appearance. [] HENT: Normocephalic, atraumatic, bilateral external ears normal, oropharynx moist, no oral exudates, nose normal. [] Eyes: PERRLA, EOMI, conjunctiva normal, no discharge. [] Neck: Normal range of motion, no tenderness, supple, no stridor. [] Cardiovascular: Heart rate 112, regular rhythm, no murmur [] Lungs & Thorax: Bilateral breath sounds diminished with expiratory wheezing throughout [] Abdomen: Bowel sounds normal, soft, no tenderness, no masses, no pulsatile masses. [] Skin: Extremely dry and scaly skin. Right lower leg cellulitis with erythema and warmth inferior to the wound. [] Back: No tenderness, no CVA tenderness. [] Extremities: No tenderness, no cyanosis, no clubbing, ROM intact, no edema. [] Neurologic: Alert and oriented X 3, normal motor function, normal sensory function, no focal deficits noted. [] Psychologic: Affect normal, judgement normal, mood normal. [] EKG: EKG: Irregular rhythm, rate 140, leftward axis, bundle branch block, no ST elevation or depression. [] Radiology/Procedures: Radiology/Procedures: [] Impressions: EXAM: CHEST 1 VIEW History: Shortness of breath COMPARISON: 08/30/2019 TECHNIQUE: Single portable radiograph of the chest FINDINGS: Mild cardiomegaly. Mild diffuse prominent bilateral interstitial lung markings likely congestive changes. Mild bibasilar lung airspace opacities likely atelectasis or infiltrates with small bilateral pleural effusions. IMPRESSION: 1. Mild congestive changes. 2. Mild bibasilar lung airspace opacities likely atelectasis or infiltrates with small bilateral pleural effusions. Electronically signed by: Carlitos Monroe MD (04/13/2021 2:41 PM) [id number] DICTATED AND SIGNED BY: CARLITOS MONROE MD DATE: 04/13/21 1437 CC: CHANDLER PAT DO; JULIA BALTAZAR MD ~MTH0 0 Heart Score: C/O Chest Pain: N/A Risk Factors: Risk Factors: DM, Current or recent (<one month) smoker, HTN, HLP, family history of CAD, obesity. Risk Scores: Score 0 - 3: 2.5% MACE over next 6 weeks - Discharge Home Score 4 - 6: 20.3% MACE over next 6 weeks - Admit for Clinical Observation Score 7 - 10: 72.7% MACE over next 6 weeks - Early Invasive Strategies Course & Med Decision Making: Course & Med Decision Making Pertinent Labs and Imaging studies reviewed. (See chart for details) The patient's EKG showed a rate of 140 with a regular rhythm. Patient does not seem to have a history of atrial fibrillation. She denies such history. We will give 20 mg of Cardizem IV. We will also give the patient a liter normal saline despite her CHF history. Her lower leg does appear to have some cellulitis extending from the wound so we will cover her with Rocephin in the ED. patient's heart rate slowed down a little bit and it does look like A. fib. We will start a Cardizem drip. I will cut out the patient's fluid resuscitation at 1 L given her CHF history. Chest x-ray is suggestive of congestive changes. I will give her 40 mg of Lasix IV. I spoke with Dr. Rowe and he has accepted the patient for admission to the ICU. The patient is in agreement with this plan. [] Dragon Disclaimer: Dragon Disclaimer: This electronic medical record was generated, in whole or in part, using a voice recognition dictation system. Departure Departure: Impression: Primary Impression: Atrial fibrillation Qualified Codes: I48.91 - Unspecified atrial fibrillation Additional Impressions: CHF (congestive heart failure) Qualified Codes: I50.23 - Acute on chronic systolic (congestive) heart failure Cellulitis, leg Qualified Codes: L03.115 - Cellulitis of right lower limb Disposition: ADMITTED INPATIENT Admitting Physician: Tracey Rowe Condition: STABLE Referrals: JULIA BALTAZAR MD (PCP) CHANDLER PAT DO Apr 13, 2021 14:09
--- NOTE | 2021-04-13 14:11 | EKG ---
[address] [address] Test Date: 2021-04-13 Test Time: 13:49:10 Pat Name: RUTH PRINGLE Department: Room: Gender: F [employer] Operator: MILAGROS : 1940 Requested By: CHANDLER PAT Order Number: [id number] Reading MD: Measurements Intervals Parnell Rate: 140 P: MT: QRS: -52 QRSD: 104 T: 124 QT: 302 QTc: 465 Interpretive Statements IRREGULAR RHYTHM, NO P-WAVE FOUND ABNORMAL LEFT AXIS DEVIATION LEFT ANTERIOR FASCICULAR BLOCK QRS(T) CONTOUR ABNORMALITY CONSISTENT WITH ANTEROSEPTAL INFARCT PROBABLY OLD CONSIDER INFERIOR INFARCT ST & T ABNORMALITY, CONSIDER HIGH LATERAL ISCHEMIA OR LEFT VENTRICULAR STRAIN ABNORMAL ECG RI6.02 No previous ECG available for comparison
[2021-04-13] MEDS ORDERED: methylPREDNISolone SOD SUCC PF 125 MG/2 ML VIAL. IV ONE (14:15)
[2021-04-13] MEDS ORDERED: IV NORMAL SALINE 1,000ML 1,000 ML IV ONE (14:15)
[2021-04-13] MEDS ORDERED: IPRATRPIUM/ALBUTEROL 0.5/2.5MG 3 ML NEBU. NEB ONE (14:15)
[2021-04-13] MEDS ORDERED: cefTRIAXone SODIUM 1 GM VIAL ONE (14:17)
[2021-04-13] MEDS ORDERED: IV NORMAL SALINE 50ML 50 ML ONE (14:17)
[2021-04-13 14:29] LABS: BASO % 1 % (0-3); EOS % 0 % (0-3); HEMATOCRIT 38.9 % (36.0-47.0); HEMOGLOBIN 12.9 g/dL (12.0-15.5); LYMPH # 0.7 x10^3/uL (1.0-4.8); LYMPH % 9 % (24-48); MEAN CORPUSCULAR HEMOGLOBIN 33 pg (25-35); MEAN CORPUSCULAR HGB CONC 33 g/dL (31-37); MEAN CORPUSCULAR VOLUME 98 fL (79-100); MONO # 0.8 x10^3/uL (0.0-1.1); MONO % 11 % (0-9); NEUT # 5.8 x10^3uL (1.8-7.7); NEUT % 79 % (31-73); PLATELET COUNT 226 x10^3/uL (140-400); RED BLOOD COUNT 3.97 x10^6/uL (3.50-5.40); RED CELL DISTRIBUTION WIDTH 13.9 % (11.5-14.5); WHITE BLOOD COUNT 7.3 x10^3/uL (4.0-11.0)
[2021-04-13] MEDS ORDERED: dilTIAZem 25 MG/5 ML VIAL IVP ONE (14:30)
--- NOTE | 2021-04-13 14:43 | RAD ---
EXAM: CHEST 1 VIEW History: Shortness of breath COMPARISON: 08/30/2019 TECHNIQUE: Single portable radiograph of the chest FINDINGS: Mild cardiomegaly. Mild diffuse prominent bilateral interstitial lung markings likely rishi estive changes. Mild bibasilar lung airspace opacities likely atelectasis or infiltrates with small b ilateral pleural effusions. IMPRESSION: 1. Mild congestive changes. 2. Mild bibasilar lung airspace opacities likely atelectasis or infiltrates with small bilateral ple ural effusions. Electronically signed by: Carlitos Monroe MD (04/13/2021 2:41 PM) [id number]
[2021-04-13 14:56] LABS: CALCIUM 9.6 mg/dL (8.5-10.1); GFR 53.6; POTASSIUM 4.1 mmol/L (3.5-5.1)
[2021-04-13 15:08] LABS: ALBUMIN 3.5 g/dL (3.4-5.0); ALBUMIN/GLOBULIN RATIO 1.2 (1.0-1.7); TOTAL BILIRUBIN 0.6 mg/dL (0.2-1.0); TOTAL PROTEIN 6.4 g/dL (6.4-8.2)
[2021-04-13] MEDS: dilTIAZem VIAL 125 MG in IV NORMAL SALINE 100ML 100 ML IV PRN ×2 (15:36→23:11)
[2021-04-13] MEDS ORDERED: FUROSEMIDE 40 MG/4 ML VIAL IVP ONE (16:30)
[2021-04-13] MEDS ORDERED: ONDANSETRON PF 4 MG/2 ML VIAL. IVP PRN (16:45)
[2021-04-13] MEDS ORDERED: PANT20TA58 PO (18:41)
[2021-04-13] MEDS ORDERED: ASPI-889 PO (18:41)
[2021-04-13] MEDS ORDERED: BRIM5DRO3 LEFTEYE (18:41)
[2021-04-13] MEDS ORDERED: BIMA2.5D EACHEYE (18:41)
[2021-04-13] MEDS ORDERED: SIMV80TA17 PO (18:41)
[2021-04-13] MEDS ORDERED: AMLO-187 PO (18:41)
[2021-04-13] MEDS ORDERED: POTA-163 PO (18:41)
[2021-04-13] MEDS ORDERED: FURO40TA4 PO (18:41)
[2021-04-13] MEDS ORDERED: RALO60TA PO (18:41)
[2021-04-13] MEDS ORDERED: FERR325T14 PO (18:41)
[2021-04-13] MEDS ORDERED: DIGOXIN IV 500 MCG/2 ML AMPUL. IV ONE (19:30)
[2021-04-13] MEDS ORDERED: ACETAMINOPHEN 325 MG TABLET PO PRN (19:30)
[2021-04-13] MEDS ORDERED: VANCOMYCIN PER PHARMACY MC PRN (19:30)
[2021-04-13] MEDS: IPRATRPIUM/ALBUTEROL 0.5/2.5MG 3 ML NEBU. NEB SCH (20:00)
[2021-04-13] MEDS ORDERED: VANCOMYCIN 2 GM in IV NORMAL SALINE 500ML 500 ML IV ONE (21:00)
[2021-04-13] MEDS ORDERED: SIMVASTATIN 40 MG TABLET. PO SCH (21:00)
[2021-04-13] MEDS: methylPREDNISolone SOD SUCC PF 40 MG/ML VIAL. IV SCH (21:23)
[2021-04-13] MEDS: FERROUS SULFATE 325 MG TABLET. PO SCH (21:23)
[2021-04-13] MEDS: NEOMY/BACITR/POLYMYXIN OINT PACKET. TP SCH (21:23)
[2021-04-13] MEDS: BRIMONIDINE 0.2% OPHTH SOLUTION 5ML BOTTLE. OS SCH (21:24)
[2021-04-13] MEDS: LATANOPROST 0.005% OPHTH SOLUTION 2.5ML BOTTLE. OU SCH (21:24)
[2021-04-13 23:58] LABS: BILIRUBIN,URINE NEG (NEG); CLARITY,URINE CLEAR; COLOR,URINE YELLOW; GLUCOSE,URINE NEG (NEG); NITRITE,URINE NEG (NEG); UROBILINOGEN,URINE 0.2 mg/dL (0.2 mg/dL)
[2021-04-13 23:59] LABS: RBC,URINE OCC /HPF (0-2); WBC,URINE OCC /HPF (0-4)
[2021-04-14] VITALS (19 sets, daily range): BP systolic 104–145; BP diastolic 48–76
[2021-04-14] LABS: BACTERIA,URINE FEW /HPF (0-FEW); SQUAMOUS EPITHELIAL CELL,UR OCC /LPF
[2021-04-14] MEDS: methylPREDNISolone SOD SUCC PF 40 MG/ML VIAL. IV SCH ×3 (05:48→22:05)
[2021-04-14] MEDS: IPRATRPIUM/ALBUTEROL 0.5/2.5MG 3 ML NEBU. NEB SCH ×4 (06:31→20:26)
[2021-04-14] MEDS: POTASSIUM CHLORIDE 20 MEQ TABLET.ER. PO SCH (08:41)
[2021-04-14] MEDS: NEOMY/BACITR/POLYMYXIN OINT PACKET. TP SCH ×2 (08:41→22:04)
[2021-04-14] MEDS: ASPIRIN ENTERIC COATED 81 MG TABLET.DR. PO SCH (08:41)
[2021-04-14] MEDS: PANTOPRAZOLE 40 MG TABLET. PO SCH (08:41)
[2021-04-14] MEDS: LACTOBACILLUS RHAMNOSUS GG 1 CAPSULE. PO SCH ×2 (08:41→22:03)
[2021-04-14] MEDS: RALOXIFENE 60 MG TABLET. PO SCH (08:41)
[2021-04-14] MEDS: FERROUS SULFATE 325 MG TABLET. PO SCH ×3 (08:41→22:04)
[2021-04-14] MEDS: BRIMONIDINE 0.2% OPHTH SOLUTION 5ML BOTTLE. OS SCH ×2 (08:42→21:00)
[2021-04-14] MEDS: PIPERACILLIN/TAZOBACTAM 3.375 GM in IV NORMAL SALINE 50ML 50 ML IV SCH ×4 (08:51→20:06)
[2021-04-14] MEDS ORDERED: FUROSEMIDE 40 MG/4 ML VIAL IVP ONE (09:00)
[2021-04-14] MEDS: METOPROLOL TART IMMED RELEASE 25 MG TABLET. PO SCH ×2 (09:14→22:04)
--- NOTE | 2021-04-14 10:36 | PDOC2 ---
CONSULT DOS: DATE: 04/14/21 TIME: 10:36 Reason for Consult: Atrial fibrillation Referring Physician: Dr. Rowe Chief Complaint Shortness of breath Source: Chart review, Patient Problem List Problems Medical Problems: (1) Atrial fibrillation Status: Acute (2) Cellulitis, leg Status: Acute (3) CHF (congestive heart failure) Status: Acute History of Present Illness 80-year-old female presented with 2 to 3-day history of progressive shortness of breath and generalized weakness. She also complained of mild chest discomfort when her shortness of breath is worse but denied any palpitations or syncope. She was found to be in atrial fibrillation with RVR and CHF and admitted for further management. She was recently seen in the ED for traumatic injury right dickinson for which she had sutures placed. She denied any fever or chills. Past Medical History Congestive heart failure, treated at in the past COPD Hypertension Past Surgical History Hip replacement surgery Family History Negative for premature coronary artery disease Social History Patient admitted to smoking cigarettes but denied any alcohol or drug use Current Medications Current Medications Ceftriaxone Sodium 1 gm/ Sodium Chloride 50 ml @ 100 mls/hr 1X ONCE IV Last administered on 04/13/21at 14:23; Start 04/13/21 at 14:15; Stop 04/13/21 at 14:44; Status DC Sodium Chloride 1,000 ml @ 1,000 mls/hr 1X ONCE IV Last administered on 04/13/21at 14:24; Start 04/13/21 at 14:15; Stop 04/13/21 at 15:14; Status DC Methylprednisolone Sodium Succinate (SOLU-Medrol 125MG VIAL) 125 mg 1X ONCE IV Last administered on 04/13/21at 14:23; Start 04/13/21 at 14:15; Stop 04/13/21 at 14:16; Status DC Albuterol/ Ipratropium (Duoneb) 3 ml 1X ONCE NEB Last administered on 04/13/21at 14:23; Start 04/13/21 at 14:15; Stop 04/13/21 at 14:16; Status DC Sodium Chloride 50 ml @ As Directed STK-MED ONCE .ROUTE ; Start 04/13/21 at 14:17; Stop 04/13/21 at 14:17; Status DC Ceftriaxone Sodium (Rocephin) 1 gm STK-MED ONCE .ROUTE ; Start 04/13/21 at 14:17; Stop 04/13/21 at 14:18; Status DC Diltiazem HCl (Cardizem Iv Push) 20 mg 1X ONCE IVP Last administered on 04/13/21at 14:41; Start 04/13/21 at 14:30; Stop 04/13/21 at 14:31; Status DC Diltiazem HCl 125 mg/Sodium Chloride 125 ml @ 5 mls/hr CONT PRN IV SEE I/O RECORD Last administered on 04/13/21at 23:11; Start 04/13/21 at 15:00 Furosemide (Lasix) 40 mg 1X ONCE IVP Last administered on 04/13/21at 18:53; Start 04/13/21 at 16:30; Stop 04/13/21 at 16:31; Status DC Ondansetron HCl (Zofran) 4 mg PRN Q4HRS PRN IVP NAUSEA/VOMITING; Start 04/13/21 at 16:45; Stop 04/14/21 at 16:44 Digoxin (Lanoxin) 500 mcg 1X ONCE IV Last administered on 04/13/21at 19:52; Start 04/13/21 at 19:30; Stop 04/13/21 at 19:52; Status DC Acetaminophen (Tylenol) 650 mg PRN Q4HRS PRN PO PAIN; Start 04/13/21 at 19:30 Vancomycin HCl (Vanco Per Pharmacy) 1 each PRN DAILY PRN MC SEE COMMENTS Last administered on 04/13/21at 22:12; Start 04/13/21 at 19:30 Piperacillin Sod/ Tazobactam Sod 3.375 gm/Sodium Chloride 50 ml @ 100 mls/hr Q6HRS IV Last administered on 04/14/21at 08:51; Start 04/14/21 at 00:00 Furosemide (Lasix) 40 mg 1X ONCE IVP Last administered on 04/14/21at 08:41; Start 04/14/21 at 09:00; Stop 04/14/21 at 09:01; Status DC Albuterol/ Ipratropium (Duoneb) 3 ml RTQID NEB ; Start 04/13/21 at 20:00 Methylprednisolone Sodium Succinate (SOLU-Medrol 40MG VIAL) 40 mg Q8HRS IV Last administered on 04/14/21at 05:48; Start 04/13/21 at 22:00 Neomycin/ Polymyxin/ Bacitracin (Triple Antibiotic Ointment) 1 pkt BID TP Last administered on 04/14/21 08:41; Start 04/13/21 at 21:00 Aspirin (Aspirin Enteric Coated) 81 mg DAILY PO Last administered on 04/14/21at 08:41; Start 04/14/21 at 09:00 Ferrous Sulfate (Feosol) 325 mg TID PO Last administered on 04/14/21 08:41; Start 04/13/21 at 21:00 Raloxifene HCl (Evista) 60 mg DAILY PO Last administered on 04/14/21 08:41; Start 04/14/21 at 09:00 Latanoprost (Xalatan) 1 drop QHS OU Last administered on 04/13/21 21:24; Start 04/13/21 at 21:00 Brimonidine Tartrate (Alphagan) 1 drop BID OS Last administered on 04/14/21at 08:42; Start 04/13/21 at 21:00 Pantoprazole Sodium (Protonix) 40 mg DAILY PO Last administered on 04/14/21 08:41; Start 04/14/21 at 09:00 Potassium Chloride (Klor-Con) 20 meq DAILY PO Last administered on 04/14/21 08:41; Start 04/14/21 at 09:00 Simvastatin (Zocor) 80 mg QHS PO Last administered on 04/13/21at 21:24; Start 04/13/21 at 21:00 Vancomycin HCl 2 gm/Sodium Chloride 500 ml @ 250 mls/hr 1X ONCE IV Last administered on 04/13/21at 21:33; Start 04/13/21 at 21:00; Stop 04/13/21 at 22:59; Status DC Vancomycin HCl 1 gm/Sodium Chloride 250 ml @ 250 mls/hr Q24H IV ; Start 04/14/21 at 21:00 Vancomycin HCl (Vancomycin Trough Level) 1 each 1X ONCE MC ; Start 04/15/21 at 20:30; Stop 04/15/21 at 20:31 Lactobacillus Rhamnosus (Culturelle) 1 cap BID PO Last administered on 04/14/21at 08:41; Start 04/14/21 at 09:00 Metoprolol Tartrate (Lopressor) 25 mg BID PO Last administered on 6/19/21at 09:14; Start 04/14/21 at 09:15 Active Scripts Active Reported Ferrous Sulfate 325 Mg Tablet 1 Tab PO TID Simvastatin 80 Mg Tablet 1 Tab PO QHS 30 Days Lumigan (Bimatoprost) 2.5 Ml Drops 1 Drop EACHEYE QHS Protonix (Pantoprazole Sodium) 20 Mg Tablet.dr 1 Tab PO DAILY Furosemide 40 Mg Tablet 1 Tab PO DAILY Potassium Chloride 20 Meq Tablet.er 20 Meq PO DAILY Alphagan P (Brimonidine Tartrate) 5 Ml Drops 1 Drop LEFTEYE BID Aspirin Ec (Aspirin) 81 Mg Tablet.dr 1 Tab PO DAILY Evista (Raloxifene Hcl) 60 Mg Tablet 1 Tab PO DAILY Amlodipine Besylate 10 Mg Tablet 1 Tab PO DAILY Allergies: Coded Allergies: No Known Drug Allergies (Unverified , 03/03/17) General: YES: Fatigue Eyes: No: Loss of vision HEENT: No: Epistaxis Respiratory: YES: Shortness of breath; No: Hemoptysis Cardiovascular: yes: Chest Pain Gastrointestinal: No: Vomiting, Diarrhea Genitourinary: No: Henaturia Neurological: No: Seizures Skin: No: Rash General: Alert HEENT: Atraumatic Lungs: Other (Bilateral basal crepitations) Heart: Other (Heart rate irregular, systolic murmur apex) Abdomen: Soft Extremities: Other (1+ pitting, redness surrounding the recently sutured laceration) Neuro: Normal speech VITALS Vital Signs Date Time Temp Pulse Resp B/P (MAP) Pulse Ox O2 Delivery O2 Flow Rate FiO2 04/14/21 09:14 135 130/65 04/14/21 09:00 23 86 Nasal Cannula 6.0 04/14/21 06:05 98.7 Labs Laboratory Tests Test 04/13/21 14:14 04/13/21 19:30 04/13/21 22:32 04/13/21 22:35 White Blood Count 7.3 x10^3/uL (4.0-11.0) Red Blood Count 3.97 x10^6/uL (3.50-5.40) Hemoglobin 12.9 g/dL (12.0-15.5) Hematocrit 38.9 % (36.0-47.0) Mean Corpuscular Volume 98 fL (79-100) Mean Corpuscular Hemoglobin 33 pg (25-35) Mean Corpuscular Hemoglobin Concent 33 g/dL (31-37) Red Cell Distribution Width 13.9 % (11.5-14.5) Platelet Count 226 x10^3/uL (140-400) Neutrophils (%) (Auto) 79 % (31-73) Lymphocytes (%) (Auto) 9 % (24-48) Monocytes (%) (Auto) 11 % (0-9) Eosinophils (%) (Auto) 0 % (0-3) Basophils (%) (Auto) 1 % (0-3) Neutrophils # (Auto) 5.8 x10^3uL (1.8-7.7) Lymphocytes # (Auto) 0.7 x10^3/uL (1.0-4.8) Monocytes # (Auto) 0.8 x10^3/uL (0.0-1.1) Eosinophils # (Auto) 0.0 x10^3/uL (0.0-0.7) Basophils # (Auto) 0.0 x10^3/uL (0.0-0.2) Sodium Level 138 mmol/L (136-145) Potassium Level 4.1 mmol/L (3.5-5.1) Chloride Level 99 mmol/L (98-107) Carbon Dioxide Level 26 mmol/L (21-32) Anion Gap 13 (6-14) Blood Urea Nitrogen 28 mg/dL (7-20) Creatinine 1.0 mg/dL (0.6-1.0) Estimated GFR (Cockcroft-Gault) 53.6 BUN/Creatinine Ratio 28 (6-20) Glucose Level 116 mg/dL (70-99) Calcium Level 9.6 mg/dL (8.5-10.1) Total Bilirubin 0.6 mg/dL (0.2-1.0) Aspartate Amino Transf (AST/SGOT) 30 U/L (15-37) Alanine Aminotransferase (ALT/SGPT) 36 U/L (14-59) Alkaline Phosphatase 102 U/L (46-116) Troponin I Quantitative < 0.017 ng/mL (0-0.055) < 0.017 ng/mL (0-0.055) < 0.017 ng/mL (0-0.055) PM-Tkm-Q-Type Natriuretic Peptide 3532 pg/mL (0-449) Total Protein 6.4 g/dL (6.4-8.2) Albumin 3.5 g/dL (3.4-5.0) Albumin/Globulin Ratio 1.2 (1.0-1.7) Urine Collection Type Unknown Urine Color Yellow Urine Clarity Clear Urine pH 5.0 Urine Specific [place] 1.015 Urine Protein Neg (NEG-TRACE) Urine Glucose (UA) Neg mg/dL (NEG) Urine Ketones (Stick) Neg mg/dL (NEG) Urine Blood Trace (NEG) Urine Nitrite Neg (NEG) Urine Bilirubin Neg (NEG) Urine Urobilinogen Dipstick 0.2 mg/dL (0.2 mg/dL) Urine Leukocyte Esterase Trace (NEG) Urine RBC Occ /HPF (0-2) Urine WBC Occ /HPF (0-4) Urine Squamous Epithelial Cells Occ /LPF Urine Bacteria Few /HPF (0-FEW) Assessment/Plan 1. Acute respiratory failure secondary to combination of acute on chronic diastolic heart failure and acute COPD exacerbation. Symptoms improving with Lasix and nebulizers. 2D echo in 2019 showed LVEF greater than 70%. Plan to repeat this possibly as an outpatient. 2. Atrial fibrillation with rapid ventricular response, newly diagnosed. Heart rate better controlled after we initiated metoprolol in addition to Cardizem drip. Change Cardizem to p.o. Start Eliquis for stroke prophylaxis and plan outpatient cardioversion in 3 to 4 weeks. 3. Cellulitis right leg: Continue antibiotics per IM 4. Hypertension: Controlled 5. Hyperlipidemia: Continue statin therapy 6. Mitral stenosis: 2D echo in 2019 showed moderate mitral valve stenosis. We will reevaluate this with repeat 2D echo. Thank you for your consultation TAMMY FITCH MD Apr 14, 2021 10:36
--- NOTE | 2021-04-14 12:23 | HP ---
HISTORY OF PRESENT ILLNESS: The patient is a 80-year-old female patient who came to the Emergency Room with a complaint of shortness of breath. She apparently has not been feeling well for almost 10 days with generalized weakness and inability to walk. She has also a laceration on the outer aspect of the right leg and there was also concern about cellulitis of the right lower extremity and she was also found to be in atrial fibrillation with rapid ventricular response. The patient denied any chest pain or diaphoresis. Denied any fever or chills. She apparently has just dry skin that has been existing for a long time. She was extensively investigated, has had an EKG which showed that she was in a regular rhythm with a heart rate of 140 with a leftward axis bundle branch block with no ST segment elevation or depression. Her chest x-ray showed mild congestive heart failure, mild cardiomegaly, mild diffuse prominent bilateral interstitial lung marking, likely congestive changes, mild bibasilar lung airspace opacities, likely atelectasis and infiltrate with small bilateral pleural effusion. The patient was admitted with atrial fibrillation. He was admitted with new onset atrial fibrillation, congestive heart failure and right lower extremity cellulitis and also acute hypoxic respiratory failure and likely on chronic obstructive pulmonary disease. PAST MEDICAL HISTORY: Significant for hypertension, hyperlipidemia, glaucoma, osteoporosis. 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 She has left carotid endarterectomy in 2006, left hip replacement 10/03/2014. She had carotid arteriogram and stent inserted in 2017. She has also stent in the innominate artery. She has femoral endarterectomy on 04/15/2019. ALLERGIES: She has no known drug allergies. FAMILY HISTORY: She has no brothers and sisters. Father at age of 62 because of lung cancer. Mother at age of 70 because of bone cancer after surviving breast cancer. SOCIAL HISTORY: She is , lives alone. She has one son. She smokes half a pack a day and smoked for more than 60 years. She has one ____ and two bourbons in the evening. 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 REVIEW OF SYSTEMS: The patient denied any blurring of vision, cataracts, glaucoma or macular degeneration. Denied any earache, tinnitus or sensory deafness. Denied any nosebleed, stuffy nose or postnasal drip. Denied any sore throat, sore tongue, toothache, hoarseness of voice or difficulty swallowing. Denied any nausea, vomiting, diarrhea or constipation. Denied any hematemesis, melena or hematochezia. Denied any dysuria, frequency or hematuria. Denied any chest pain, shortness of breath, orthopnea, paroxysmal nocturnal dyspnea. Denied any cough, phlegm or hemoptysis. PHYSICAL EXAMINATION: GENERAL: On arrival to the emergency room, she was tachypneic, tachycardic, but there was no pallor, jaundice, cyanosis, no lymphadenopathy, no thyromegaly, no jugular venous distention, no limb edema. VITAL SIGNS: Her heart rate was 140, blood pressure is 138/69. Her temperature was 98.7, respiratory rate was 28 and oxygen saturation was apparently 86% on room air, that improved to 95 on 2 liters of oxygen. HEAD, EYES, EARS, NOSE AND THROAT: Normocephalic, atraumatic. NECK: Supple. HEART: Normal first and second heart sounds, no gallop, rub or murmur. CHEST: Shows central trachea. Equal chest expansion, air entry, vesicular breath sounds with bilateral scattered rhonchi and bilateral crepitation. ABDOMEN: Scaphoid, soft, nontender. NEUROLOGIC: She was apparently awake, alert, responding appropriately. All cranial nerves intact. She moves extremities without difficulty. LABORATORY DATA: On admission showed a white cell count of 7300, hemoglobin 13, hematocrit 39, MCV 98 and platelet count 226,000 with a manual differential showed 79% polymorphs, 10% lymphocytes, 11% monocytes. Her chemistry showed a serum sodium of 138, potassium 4.1, chloride 99, bicarbonate 26, anion gap of 13, BUN 28, creatinine 1. Estimated GFR was 50 mL per minute. Her glucose 116, calcium was 9.6. Total bilirubin, AST, ALT, alkaline phosphatase are normal. Her beta natriuretic peptide was 3500. Total protein was 6.4, albumin was 3.5. Urinalysis showed the urine was yellow, clear, pH of 5, specific gravity 1.015, the urine was negative for protein, glucose, ketones and trace of blood, negative for nitrite, there was a trace of leukocyte esterase, occasional rbc's, occasional wbc's and very few bacteria. Her chest x-ray showed the patient to have mild cardiomegaly and mild diffuse prominent bilateral interstitial lung markings, likely congestive changes with mild bilateral lung airspace opacities, likely atelectasis or infiltrate with mall bilateral pleural effusion. ASSESSMENT AND PLAN: The patient was admitted with new onset atrial fibrillation with rapid ventricular response, acute on chronic diastolic congestive heart failure, acute on chronic hypoxic respiratory failure, right lower extremity cellulitis, multiple other medical problems including hypertension, hyperlipidemia, glaucoma, peripheral vascular disease with multiple revascularization procedures. The patient was treated with steroids as well as ceftriaxone, furosemide, Cardizem drip as well as digoxin. We expanded her coverage because of her right lower extremity cellulitis to vancomycin as well as Zosyn, and was continued on her other medication including raloxifene, aspirin, and Protonix. ALLISON DR: Gin TID: [id number]
[2021-04-14] MEDS: FUROSEMIDE 40 MG/4 ML VIAL IVP SCH (12:35)
[2021-04-14] MEDS: LATANOPROST 0.005% OPHTH SOLUTION 2.5ML BOTTLE. OU SCH (21:00)
[2021-04-14] MEDS: VANCOMYCIN 1 GM in IV NORMAL SALINE 250ML 250 ML IV SCH (22:03)
[2021-04-14] MEDS: ATORVASTATIN CALCIUM 20 MG TABLET PO SCH (22:04)
[2021-04-14] MEDS: APIXABAN 5 MG TABLET. PO SCH (22:04)
[2021-04-15] MEDS: ONDANSETRON PF 4 MG/2 ML VIAL. IVP PRN ×2 (00:15→21:54)
--- NOTE | 2021-04-15 01:46 | PN ---
DATE: 04/14/2021 SUBJECTIVE: The patient is resting, slightly propped up in bed, in no apparent respiratory distress. She is awake, alert, finishing her sentences without difficulty. She continued to be on 6 liters of oxygen by facemask, maintaining her oxygen saturation of 95%. OBJECTIVE: GENERAL: On examining her, she looked well and was clearly in no apparent respiratory distress. No pallor, jaundice, cyanosis, or thyromegaly. No jugular distention. No limb edema. Her surgical wound on the right side is healing nicely with surrounding erythema, covered with dressing that is dry and intact. HEAD, EYES, EARS, NOSE, AND THROAT: Normocephalic, atraumatic. NECK: Supple. HEART: Showed normal first and second heart sounds. No gallop, rub or murmur. CHEST: Shows central trachea, equally reduced expansion, reduced air entry, vesicular breath sounds with bilateral basal crepitations. Few scattered rhonchi bilaterally. ABDOMEN: Scaphoid, soft, nontender. NEUROLOGIC: She was grossly intact. LABORATORY DATA: There are no labs done this morning. ASSESSMENT AND PLAN: There are 3 sets of cardiac enzymes that ruled out myocardial infarction. She was seen in consultation by the allergist/md with a plan to switch her to oral Cardizem and Eliquis. Meanwhile, we will continue with IV antibiotic for treatment of cellulitis and possible pneumonia. Continue with oxygen supplementation. Continue with steroids and bronchodilators for COPD exacerbation. Continue with Lasix orally. She was started on metoprolol and heart rate has dramatically improved. JORGE DR: Gin TID: [id number]
[2021-04-15] MEDS: PIPERACILLIN/TAZOBACTAM 3.375 GM in IV NORMAL SALINE 50ML 50 ML IV SCH ×3 (02:06→14:11)
[2021-04-15] MEDS: IPRATRPIUM/ALBUTEROL 0.5/2.5MG 3 ML NEBU. NEB SCH ×4 (04:49→19:14)
[2021-04-15] MEDS: methylPREDNISolone SOD SUCC PF 40 MG/ML VIAL. IV SCH ×3 (05:15→21:54)
[2021-04-15 05:16] VITALS: BP 112/65
[2021-04-15 07:54] LABS: HEMATOCRIT 37.1 % (36.0-47.0); HEMOGLOBIN 12.1 g/dL (12.0-15.5); RED BLOOD COUNT 3.72 x10^6/uL (3.50-5.40); WHITE BLOOD COUNT 13.2 x10^3/uL (4.0-11.0)
[2021-04-15] MEDS: ASPIRIN ENTERIC COATED 81 MG TABLET.DR. PO SCH (08:18)
[2021-04-15] MEDS: RALOXIFENE 60 MG TABLET. PO SCH (08:18)
[2021-04-15] MEDS: POTASSIUM CHLORIDE 20 MEQ TABLET.ER. PO SCH (08:18)
[2021-04-15] MEDS: APIXABAN 5 MG TABLET. PO SCH ×2 (08:19→20:17)
[2021-04-15] MEDS: METOPROLOL TART IMMED RELEASE 25 MG TABLET. PO SCH ×2 (08:19→21:00)
[2021-04-15] MEDS: LACTOBACILLUS RHAMNOSUS GG 1 CAPSULE. PO SCH ×2 (08:19→20:17)
[2021-04-15] MEDS: FERROUS SULFATE 325 MG TABLET. PO SCH ×3 (08:19→20:17)
[2021-04-15] MEDS: FUROSEMIDE 40 MG/4 ML VIAL IVP SCH (08:20)
[2021-04-15] MEDS: PANTOPRAZOLE 40 MG TABLET. PO SCH (08:20)
[2021-04-15] MEDS: NEOMY/BACITR/POLYMYXIN OINT PACKET. TP SCH ×2 (08:20→20:17)
[2021-04-15] MEDS: BRIMONIDINE 0.2% OPHTH SOLUTION 5ML BOTTLE. OS SCH ×2 (08:55→21:00)
--- NOTE | 2021-04-15 10:21 | PN ---
DATE: 04/15/2021 SUBJECTIVE: The patient is resting, slightly propped up in bed in no apparent distress. She denied any complaint, in particular denied any shortness of breath, cough, phlegm or hemoptysis. OBJECTIVE: GENERAL: On examining her, she looked well and was clearly in no apparent respiratory distress. There is no pallor, jaundice, cyanosis, no lymphadenopathy, no thyromegaly, no jugular venous distention. No limb edema. VITAL SIGNS: Heart rate was 67, blood pressure is 112/65, temperature was 98.4, respiratory rate was 18 and oxygen saturation was 90% on 5 liters of oxygen. HEAD, EYES, EARS, NOSE AND THROAT: Normocephalic, atraumatic. NECK: Supple. HEART: Normal first and second heart sounds. No gallop, rub or murmur. CHEST: Clear to auscultation. No crepitation or rhonchi. ABDOMEN: Scaphoid, soft, nontender. NEUROLOGIC: She is awake, alert, responding appropriately. Cranial nerves intact. She moves without difficulty. SKIN: Wounds on her right lower extremity is covered with dressing that is dry and intact. INTAKE AND OUTPUT: Her intake over the last 24 hours was 1450. No output was recorded. LABORATORY DATA: This morning showed a white cell count of 13,200, hemoglobin 12, hematocrit 37, MCV 100 and platelet count of 197,000. Her chemistry showed a serum sodium 138, potassium 4.1, chloride 99, bicarbonate 26, anion gap of 13, BUN 28, creatinine 1, estimated GFR was 53 mL per minute. Her glucose 116, calcium was 9.6. Total bilirubin, AST, ALT, alkaline phosphatase were normal. Her beta natriuretic peptide was 3500. Total protein was 6.4, albumin was 3.5. Today's chemistry is still pending at the time of this dictation. ASSESSMENT: 1. New onset atrial fibrillation, rate controlled. Well-anticoagulated on Cardizem, metoprolol and apixaban. 2. Right lower extremity cellulitis. She is on IV antibiotic. 3. Obstructive pulmonary disease exacerbation, for which she is on steroids and bronchodilator. She obviously has [id number] hypoxic respiratory failure. Her oxygen saturation is borderline between 88-90% despite being on 5 liters of oxygen. PLAN: My plan is to continue with IV antibiotic in the form of vancomycin and Zosyn. Continue with IV Lasix. Continue with diltiazem and metoprolol. We will evaluate her tomorrow morning and probably discharge her home on a tapering course of steroids as she is insisting she wants to go home. DOMONIQUE DR: Gin TID: [id number]
--- NOTE | 2021-04-15 10:23 | PDOC ---
PROGRESS NOTES Date of Service DOS: DATE: 04/15/21 TIME: 10:23 Diagnosis Problem Problems Medical Problems: (1) Atrial fibrillation Status: Acute (2) Cellulitis, leg Status: Acute (3) CHF (congestive heart failure) Status: Acute Assessment 1. Acute respiratory failure secondary to combination of acute on chronic diastolic heart failure and acute COPD exacerbation. Symptoms improving with Lasix and nebulizers. 2D echo in 2019 showed LVEF greater than 70%. Plan to repeat this possibly as an outpatient. 2. Atrial fibrillation with rapid ventricular response, newly diagnosed. Heart rate better controlled with metoprolol and Cardizem. Continue Eliquis for stroke prophylaxis and plan for outpatient cardioversion in 3 to 4 weeks.. 3. Cellulitis right leg: Continue antibiotics per IM 4. Hypertension: Controlled 5. Hyperlipidemia: Continue statin therapy 6. Mitral stenosis: 2D echo in 2019 showed moderate mitral valve stenosis. We will reevaluate this with repeat 2D echo. Subjective Dyspnea improving. Denied any chest pain or palpitations. Wants to go home. Objective Vital Signs Date Time Temp Pulse Resp B/P (MAP) Pulse Ox O2 Delivery O2 Flow Rate FiO2 04/15/21 08:19 67 112/65 04/15/21 05:16 98.4 18 92 Nasal Cannula 5.0 Intake and Output 04/15/21 07:00 Intake Total 1385 ml Output Total 400 ml Balance 985 ml Intake Oral 810 ml IV Total 575 ml Output Urine Total 400 ml # Voids 9 Abdomen: Soft Heart: Other (Heart rate irregular) Extremities: No edema General: Alert, Oriented X3 HEENT: Atraumatic Lungs: Other (Few expiratory rhonchi) Neck: Supple Neuro: Normal speech Psych/Mental Status: Mental status NL Review of Relevant I have reviewed the following items tanya (where applicable) has been applied. Labs Laboratory Tests Test 04/15/21 06:55 White Blood Count 13.2 x10^3/uL (4.0-11.0) H Red Blood Count 3.72 x10^6/uL (3.50-5.40) Hemoglobin 12.1 g/dL (12.0-15.5) Hematocrit 37.1 % (36.0-47.0) Mean Corpuscular Volume 100 fL (79-100) Mean Corpuscular Hemoglobin 33 pg (25-35) Mean Corpuscular Hemoglobin Concent 33 g/dL (31-37) Red Cell Distribution Width 14.0 % (11.5-14.5) Platelet Count 197 x10^3/uL (140-400) Microbiology 04/14/21 Urine Culture - Final, Complete Medications Current Medications Medications (Trade) Dose Ordered Sig/Renetta Route PRN Reason Start Time Stop Time Status Last Admin Dose Admin Vancomycin HCl 1 gm/Sodium Chloride 250 ml @ 250 mls/hr Q24H IV 04/14/21 21:00 04/14/21 22:03 Diltiazem HCl (Cardizem 24hr Cd) 240 mg DAILY PO 04/14/21 12:15 04/15/21 08:18 Apixaban (Eliquis) 5 mg BID PO 04/14/21 21:00 04/15/21 08:19 Furosemide (Lasix) 40 mg DAILY IVP 04/14/21 12:15 04/15/21 08:20 Atorvastatin Calcium (Lipitor) 40 mg QHS PO 04/14/21 21:00 04/14/21 22:04 Piperacillin Sod/ Tazobactam Sod 3.375 gm/Sodium Chloride 50 ml @ 100 mls/hr Q6H IV 04/14/21 20:00 04/15/21 08:17 Ondansetron HCl (Zofran) 4 mg PRN Q8HRS PRN IVP NAUSEA/VOMITING 04/15/21 00:15 04/15/21 00:15 Vitals/I & O Vital Signs Date Time Temp Pulse Resp B/P (MAP) Pulse Ox O2 Delivery O2 Flow Rate FiO2 04/15/21 08:19 67 112/65 04/15/21 05:16 98.4 18 92 Nasal Cannula 5.0 I & O 04/14/21 04/14/21 04/15/21 15:00 23:00 07:00 Intake Total 535 ml 300 ml 550 ml Output Total 250 ml 150 ml Balance 535 ml 50 ml 400 ml Justification of Admission: Justification of Admission: Justification of Admission Dx: Yes TAMMY FITCH MD Apr 15, 2021 10:23
[2021-04-15 11:38] VITALS: BP 127/78
[2021-04-15 13:08] LABS: CALCIUM 8.5 mg/dL (8.5-10.1); CREATININE 1.5 mg/dL (0.6-1.0); GFR 33.6; POTASSIUM 4.2 mmol/L (3.5-5.1); TOTAL BILIRUBIN 0.3 mg/dL (0.2-1.0); TOTAL PROTEIN 6.1 g/dL (6.4-8.2)
[2021-04-15] MEDS: NICOTINE 21MG PATCH. TD SCH (14:12)
[2021-04-15 16:18] VITALS: BP 119/74
[2021-04-15 19:20] VITALS: BP 96/65
[2021-04-15] MEDS: ATORVASTATIN CALCIUM 20 MG TABLET PO SCH (20:17)
[2021-04-15] MEDS: PIPERACILLIN/TAZOBACTAM 2.25 GM in IV NORMAL SALINE 50ML 50 ML IV SCH (20:17)
[2021-04-15] MEDS: LATANOPROST 0.005% OPHTH SOLUTION 2.5ML BOTTLE. OU SCH (21:00)
[2021-04-15 21:11] LABS: VANC TR 16.6 mcg/mL (10.0-20.0)
[2021-04-15] MEDS: VANCOMYCIN 1 GM in IV NORMAL SALINE 250ML 250 ML IV SCH (21:54)
[2021-04-16] MEDS: PIPERACILLIN/TAZOBACTAM 2.25 GM in IV NORMAL SALINE 50ML 50 ML IV SCH ×2 (02:32→09:09)
[2021-04-16] MEDS: IPRATRPIUM/ALBUTEROL 0.5/2.5MG 3 ML NEBU. NEB SCH ×2 (05:17→10:55)
[2021-04-16 05:45] VITALS: BP 102/65
[2021-04-16] MEDS: methylPREDNISolone SOD SUCC PF 40 MG/ML VIAL. IV SCH (06:06)
--- NOTE | 2021-04-16 08:03 | PDOC ---
CARDIO Progress Notes Date & Time Date of Service DATE: 04/16/21 TIME: 08:02 Time of Evaluation 08:02 Subjective Notes Breathing improved, wanting to be discharged Vitals Vitals Vital Signs Date Time Temp Pulse Resp B/P (MAP) Pulse Ox O2 Delivery O2 Flow Rate FiO2 04/16/21 05:45 97.9 68 20 102/65 (77) 93 Nasal Cannula 5.0 Weight Weight [ ] Input and Output I.O. Intake and Output 04/16/21 07:00 Intake Total 1790 ml Balance 1790 ml Intake Oral 1490 ml IV Total 300 ml # Voids 3 Laboratory Labs Laboratory Tests Test 04/15/21 06:55 04/15/21 20:33 White Blood Count 13.2 x10^3/uL (4.0-11.0) Red Blood Count 3.72 x10^6/uL (3.50-5.40) Hemoglobin 12.1 g/dL (12.0-15.5) Hematocrit 37.1 % (36.0-47.0) Mean Corpuscular Volume 100 fL (79-100) Mean Corpuscular Hemoglobin 33 pg (25-35) Mean Corpuscular Hemoglobin Concent 33 g/dL (31-37) Red Cell Distribution Width 14.0 % (11.5-14.5) Platelet Count 197 x10^3/uL (140-400) Sodium Level 139 mmol/L (136-145) Potassium Level 4.2 mmol/L (3.5-5.1) Chloride Level 102 mmol/L (98-107) Carbon Dioxide Level 27 mmol/L (21-32) Anion Gap 10 (6-14) Blood Urea Nitrogen 33 mg/dL (7-20) Creatinine 1.5 mg/dL (0.6-1.0) Estimated GFR (Cockcroft-Gault) 33.6 BUN/Creatinine Ratio 22 (6-20) Glucose Level 167 mg/dL (70-99) Calcium Level 8.5 mg/dL (8.5-10.1) Total Bilirubin 0.3 mg/dL (0.2-1.0) Aspartate Amino Transf (AST/SGOT) 14 U/L (15-37) Alanine Aminotransferase (ALT/SGPT) 26 U/L (14-59) Alkaline Phosphatase 76 U/L (46-116) Total Protein 6.1 g/dL (6.4-8.2) Albumin 3.0 g/dL (3.4-5.0) Albumin/Globulin Ratio 1.0 (1.0-1.7) Thyroid Stimulating Hormone (TSH) 1.238 uIU/mL (0.358-3.740) Vancomycin Level Trough 16.6 mcg/mL (10.0-20.0) Vancomycin Last Dose Date Unk Vancomycin Last Dose Time Unk Microbiology Micro Microbiology 04/14/21 Urine Culture - Final, Complete Physical Exams HEENT: Neck Supple W Full Motion Chest: Symmetric Lungs: Clear to Auscultation Heart: irregularly irregular (AFIB rate controlled ) Abdomen: Soft N/T Neurology: alert, oriented, follow commands Assessment Assessment 1. Acute respiratory failure secondary to combination of acute on chronic diastolic heart failure and acute COPD exacerbation. improved s/p IV Lasix. 2D echo in 2019 showed LVEF greater than 70%. 2. Atrial fibrillation with rapid ventricular response, newly diagnosed. Heart rate now controlled. with metoprolol and Cardizem. 3. Cellulitis right leg: Continue antibiotics per IM 4. Hypertension: Controlled 5. Hyperlipidemia: statin 6. Mitral stenosis: 2D echo in 2019 showed moderate mitral valve stenosis. 7. TREVOR; Cr ^ 1.5 s/p IV diuresis Recommendations Discontinue IV Lasix. Continue Cardizem and metoprolol for rate control Eliquis for stroke prophylaxis. Outpatient echo Outpatient cardioversion in 3-4 weeks. Consider outpatient ischemic evaluation Follow in our [place] office as scheduled KM LUI APRN Apr 16, 2021 08:03
[2021-04-16] MEDS: BRIMONIDINE 0.2% OPHTH SOLUTION 5ML BOTTLE. OS SCH (09:00)
[2021-04-16] MEDS: ASPIRIN ENTERIC COATED 81 MG TABLET.DR. PO SCH (09:00)
[2021-04-16] MEDS: FUROSEMIDE 40 MG/4 ML VIAL IVP SCH (09:00)
[2021-04-16] MEDS: NEOMY/BACITR/POLYMYXIN OINT PACKET. TP SCH (09:06)
[2021-04-16] MEDS: NICOTINE 21MG PATCH. TD SCH (09:06)
[2021-04-16] MEDS: PANTOPRAZOLE 40 MG TABLET. PO SCH (09:07)
[2021-04-16] MEDS: RALOXIFENE 60 MG TABLET. PO SCH (09:08)
[2021-04-16] MEDS: APIXABAN 5 MG TABLET. PO SCH (09:08)
[2021-04-16] MEDS: METOPROLOL TART IMMED RELEASE 25 MG TABLET. PO SCH (09:08)
[2021-04-16] MEDS: LACTOBACILLUS RHAMNOSUS GG 1 CAPSULE. PO SCH (09:08)
[2021-04-16] MEDS: POTASSIUM CHLORIDE 20 MEQ TABLET.ER. PO SCH (09:08)
[2021-04-16] MEDS: FERROUS SULFATE 325 MG TABLET. PO SCH (09:08)
[2021-04-16 10:41] LABS: CREATININE 1.8 mg/dL (0.6-1.0); GFR 27.2; POTASSIUM 4.7 mmol/L (3.5-5.1)
[2021-04-16 10:42] VITALS: BP 116/75
[2021-04-16] MEDS ORDERED: APIX5TAB3 PO (11:10)
[2021-04-16] MEDS ORDERED: PRED20TA PO (11:10)
[2021-04-16] MEDS ORDERED: DOXY100C2 PO (11:10)
[2021-04-16] MEDS ORDERED: METO25TA4 PO (11:10)
[2021-04-16] MEDS ORDERED: DILT240C2 PO (11:10)
--- NOTE | 2021-04-16 11:16 | DISCH ---
HOME HEALTH DISCHARGE/MEDS DISCHARGE INFORMATION: Discharge Date: Apr 16, 2021 Final Diagnosis: Problems Medical Problems: (1) Atrial fibrillation Status: Acute (2) Cellulitis, leg Status: Acute (3) CHF (congestive heart failure) Status: Acute Condition on Discharge: Stable CODE STATUS: Code Status: Full HOME HEALTH: Face to Face: I certify this patient is under my care and that I, or a nurse practitioner or physician's web production assistant working with me, had a face to face encounter that meets the physician face to face encounter requirements ON 04/16/2021 Medical Condition(s): CHF, COPD Custodial For: Medication Management Physical Therapy For: Evalulation/Treatment Occupational Therapy For: Evaluation/Treatment WOOD ROOM HAND For: Community Resources Homebound Status Met By: Unsteady balance w/ amb, POST DISCHARGE ORDERS: Activity Instructions for Disc: Activity as tolerated DIET AFTER DISCHARGE: Cardiac CERTIFICATION STATEMENT: Certification Statement: Based on the above finding, I certify that this patient is confined to the home and needs intermittent [facility] care, physical therapy and/or speech therapy, or continues to need occupational therapy.~ This patient is under my care, and I have initiated the establishment of the plan of care.~ This patient will be followed by myself or a community physician who will periodically review the plan of care. DISCHARGE MEDICATIONS: Home Meds Active Scripts Prednisone (PREDNISONE) 20 Mg Tablet, 1 TAB PO DAILY for COPD for 1 Day, #10 TAB Prov:KUMAR RADFORD MD 04/16/21 Doxycycline Hyclate (DOXYCYCLINE HYCLATE) 100 Mg Capsule, 1 CAP PO BID for CELLULITIS for 7 Days, #14 CAP Prov:KUMAR RADFORD MD 04/16/21 Apixaban (ELIQUIS) 5 Mg Tablet, 5 MG PO BID for AFIB for 30 Days, #60 TAB 5 Refills Prov:KUMAR RADFORD MD 04/16/21 Diltiazem Hcl (CARDIZEM CD) 240 Mg Cap.er.24h, 1 CAP PO DAILY for HTN/A FIB for 30 Days, #30 CAP 5 Refills Prov:KUMAR RADFORD MD 04/16/21 Metoprolol Tartrate (METOPROLOL TARTRATE) 25 Mg Tablet, 1 TAB PO BID for AFIB for 30 Days, #60 TAB 5 Refills Prov:KUMAR RADFORD MD 04/16/21 Reported Medications Ferrous Sulfate (FERROUS SULFATE) 325 Mg Tablet, 1 TAB PO TID for supplement, #30 TAB 3 Refills 04/13/21 Simvastatin (SIMVASTATIN) 80 Mg Tablet, 1 TAB PO QHS for hld for 30 Days, #30 TAB 0 Refills 04/13/21 Bimatoprost (LUMIGAN) 2.5 Ml Drops, 1 DROP EACHEYE QHS for glaucoma, #7.5 ML 3 Refills 04/13/21 Pantoprazole Sodium (PROTONIX) 20 Mg Tablet.dr, 1 TAB PO DAILY for gerd, #30 TAB 3 Refills 04/13/21 Furosemide (FUROSEMIDE) 40 Mg Tablet, 1 TAB PO DAILY for chf, #30 TAB 5 Refills 04/13/21 Potassium Chloride (Potassium Chloride) 20 Meq Tablet.er, 20 MEQ PO DAILY for supplement, TAB.SR 04/13/21 Brimonidine Tartrate (ALPHAGAN P) 5 Ml Drops, 1 DROP LEFTEYE BID for glaucoma, #15 ML 3 Refills 04/13/21 Aspirin (ASPIRIN EC) 81 Mg Tablet.dr, 1 TAB PO DAILY for heart health, #30 TAB 3 Refills 04/13/21 Raloxifene Hcl (EVISTA) 60 Mg Tablet, 1 TAB PO DAILY for osteoporosis, #30 TAB 11 Refills 04/13/21 Discontinued Reported Medications Amlodipine Besylate (AMLODIPINE BESYLATE) 10 Mg Tablet, 1 TAB PO DAILY for htn, #30 TAB 5 Refills 04/13/21 KUMAR RADFORD MD Apr 16, 2021 11:15
--- NOTE | 2021-04-16 20:39 | DS ---
DATE OF DISCHARGE: 04/16/2021 HOSPITAL COURSE: The patient is a 80-year-old female patient who was admitted on 04/13/2021 through the emergency room with a complaint of shortness of breath. She apparently has not been feeling well for almost 10 days with generalized weakness and inability to walk. She also sustained a laceration on the outer aspect of her right leg that was sutured in the emergency room on a previous visit and there was concern that she might have cellulitis of the right lower extremity. While in the emergency room, she was found to be in atrial fibrillation with rapid ventricular response and the patient, however, denied any chest pain or diaphoresis, denied any fever or chills. Her skin is dry and has been existing for a long time. She was extensively investigated, had an EKG, which showed that she was in a regular rhythm with a heart rate of 140 with left bundle branch block, however, no ST segment elevation or depression. Chest x-ray showed mild congestive heart failure, mild diffuse prominent bilateral interstitial lung markings, likely congestive changes, and therefore, the patient was admitted, was started on a Cardizem drip and also was given digoxin and eventually metoprolol. She was also started on IV vancomycin as well as Zosyn for cellulitis and possible pneumonia and she did actually very well; however, she was also diagnosed with acute on chronic hypoxic respiratory failure. Her heart rate has been well controlled and she is well anticoagulated on apixaban. She was given Lasix multiple times and creatinine has risen from 1 to 1.8, therefore, her Lasix was held together with the potassium and as she remained hemodynamically stable with heart rate as well controlled, a decision was made to discharge her home with home health to continue on a tapering course of steroids, Cardizem, metoprolol to control the heart rate, apixaban for stroke prevention and doxycycline for treatment of her right lower extremity cellulitis. PHYSICAL EXAMINATION: GENERAL: When I examined her this afternoon, she looked well and was clearly in no apparent respiratory distress. There was no pallor, jaundice, cyanosis, no lymphadenopathy, no thyromegaly, no jugular venous distention, no lower limb edema. VITAL SIGNS: Her heart rate was 78, blood pressure was 116/75, temperature was 97.7, respiratory rate 22, and oxygen saturation was 94% on 5 liters of oxygen. HEAD, EYES, EARS, NOSE AND THROAT: Normocephalic, atraumatic. NECK: Supple. HEART: Showed normal first and second heart sounds. No gallop or murmur. CHEST: Shows central trachea, equally reduced expansion, reduced air entry, vesicular breath sounds. I could not really appreciate any crepitation or rhonchi. ABDOMEN: Scaphoid, soft, nontender. NEUROLOGIC: She is grossly intact. LABORATORY DATA: Her lab work this morning showed a white cell count of 13,200, hemoglobin 12, hematocrit 37, MCV 100 and platelet count of 197,000. Her serum sodium was 140, potassium 4.7, chloride 103, bicarbonate 31, anion gap of 6, BUN 36, creatinine 1.8. Estimated GFR was 27 mL per minute. Her glucose was 120, calcium was 9. TSH was normal at 1.238. DISCHARGE MEDICATIONS: She was discharged home with home health to continue, on apixaban 5 mg twice a day, diltiazem for Cardizem-CD 240 mg once a day, doxycycline 100 mg twice a day for 7 days, metoprolol tartrate 25 mg twice a day, prednisone in tapering course. She should continue also on aspirin 81 mg once a day, Lumigan 1 drop to both eyes at bedtime, brimonidine tartrate 1 drop to both eyes twice a day, ferrous sulfate 325 mg 3 times a day, furosemide 40 mg once a day. She was advised to hold it in the next 3 days, Protonix 40 mg once a day, potassium chloride 20 mEq once a day. She was also advised to hold potassium. She is also on raloxifene for Evista 60 mg once a day and simvastatin 80 mg at bedtime. FINAL DISCHARGE DIAGNOSES: 1. New-onset atrial fibrillation with rapid ventricular response, now rate controlled, well anticoagulated. She was discharged on Cardizem, metoprolol and apixaban. 2. Right lower extremity cellulitis for which she was discharged on doxycycline. 3. Acute on chronic hypoxic respiratory failure. 4. Chronic obstructive pulmonary disease. She was discharged on a tapering course of steroids, bronchodilator, and home oxygen. JORGE DR: Gin TID: [id number]
== END 2021-04-16 14:15 | disposition home health service (06) | DRG 871 ==
LOC: ER 13:34 → ICU 16:32 → 1 SOUTH 04-14 19:07
PROVIDERS: ADMIT Internal Medicine; ATTEND Internal Medicine
DX: A41.9 Sepsis, unspecified organism (principal); J96.21 Acute and chronic respiratory failure with hypoxia; I50.33 Acute on chronic diastolic (congestive) heart failure; L03.115 Cellulitis of right lower limb; N17.9 Acute kidney failure, unspecified; J44.1 Chronic obstructive pulmonary disease with (acute) exacerbation; J98.11 Atelectasis; I48.20 Chronic atrial fibrillation, unspecified; I11.0 Hypertensive heart disease with heart failure; F17.210 Nicotine dependence, cigarettes, uncomplicated; E78.5 Hyperlipidemia, unspecified; I73.9 Peripheral vascular disease, unspecified; M81.0 Age-related osteoporosis without current pathological fracture; Z96.642 Presence of left artificial hip joint; I05.0 Rheumatic mitral stenosis; H40.9 Unspecified glaucoma; Z80.3 Family history of malignant neoplasm of breast; Z80.1 Family history of malignant neoplasm of trachea, bronchus and lung; Z79.01 Long term (current) use of anticoagulants
CPT/HCPCS: 36415; 71045; 73590; 80048; 80053; 80202; 81001; 83880; 84443; 84484; 85025; 85027; 87086; 93005; 94618; 94640; 94760; 96374; 96375; J0696; J1160; J1940; J2405; J2543; J2920; J2930; J3370; J3490; J7040; J7050; 99285-25; J7030

== ENCOUNTER 2021-05-03 10:13 | Emergency (ER) | payer MEDICARE ==
[~2021-05-03] VITALS: Ht 170.2 cm; Wt 66.4 kg
[~2021-05-03 10:13] MED LIST changes: +AMLO-187 PO; +APIX5TAB3 PO; +ASPI-889 PO; +BIMA2.5D EACHEYE; +BRIM5DRO3 LEFTEYE; +DILT240C2 PO; +DOXY100C2 PO; +FERR325T14 PO; +FURO40TA4 PO; +METO25TA4 PO; +PANT20TA58 PO; +POTA-163 PO; +PRED20TA PO; +RALO60TA PO; -REGADENOSON 0.4 MG/5 ML DISP.SYRIN. IV ONE; +SIMV80TA17 PO
--- NOTE | 2021-05-03 10:58 | PHYS DOC ---
Past History Past Medical History: CHF, COPD, Hypertension Past Surgical History: Hip Replacement Smoking: Cigarettes Alcohol Use: None Drug Use: None General Adult EDM: Chief Complaint: Lower leg sores HPI: HPI: 80-year-old female presents with bilateral lower leg sores. The patient actually came down here because she has to be on oxygen and she did not bring her portable oxygen to her appointment with her primary care physician, Dr. Remy. She expected to come down here and check into the ER and then have Dr. Remy come down from his office and see her in the ER. She did not go to his office because she was not sure his office had oxygen. She tells us that her portable oxygen from home does not work. Her appointment was to look at these fissures in her bilateral lower extremities. The right leg is from a laceration that was sutured. It has not completely healed. She states that the fissures on her left lower leg just spontaneously opened 2 days ago. She denies fever or chills. She has some kind of severe dry skin condition chronically. Review of Systems: Review of Systems: Constitutional: Denies fever or chills Eyes: Denies change in visual acuity HENT: Denies nasal congestion or sore throat Respiratory: Denies cough or shortness of breath Cardiovascular: Denies chest pain or edema GI: Denies abdominal pain, nausea, vomiting, bloody stools or diarrhea : Denies dysuria Musculoskeletal: Denies back pain or joint pain Integument: Spontaneous skin tears of the bilateral lower extremities. Neurologic: Denies headache, focal weakness or sensory changes Endocrine: Denies polyuria or polydipsia Lymphatic: Denies swollen glands Psychiatric: Denies depression or anxiety Allergies: Allergies: Allergies Coded Allergies Type Severity Reaction Last Updated Verified No Known Drug Allergies 03/03/17 No Physical Exam: PE: Constitutional: Well developed, well nourished, no acute distress, non-toxic appearance. [] HENT: Normocephalic, atraumatic, bilateral external ears normal, oropharynx moist, no oral exudates, nose normal. [] Eyes: PERRLA, EOMI, conjunctiva normal, no discharge. [] Neck: Normal range of motion, no tenderness, supple, no stridor. [] Cardiovascular:Heart rate regular rhythm, no murmur [] Lungs & Thorax: Bilateral breath sounds clear to auscultation [] Abdomen: Bowel sounds normal, soft, no tenderness, no masses, no pulsatile masses. [] Skin: Severe dry skin all over her body. Openings in the skin of the bilateral lower extremities that appear to be spontaneous fissures. Cool to the touch except the left lower extremity is erythematous and warmer. [] Back: No tenderness, no CVA tenderness. [] Extremities: No tenderness, no cyanosis, no clubbing, ROM intact, no edema. [] Neurologic: Alert and oriented X 3, normal motor function, normal sensory function, no focal deficits noted. [] Psychologic: Affect normal, judgement normal, mood cantankerous. [] EKG: EKG: Atrial fibrillation, rate 91, left axis, no obvious ST elevation or depression. [] Radiology/Procedures: Radiology/Procedures: [] Heart Score: C/O Chest Pain: N/A Risk Factors: Risk Factors: DM, Current or recent (<one month) smoker, HTN, HLP, family history of CAD, obesity. Risk Scores: Score 0 - 3: 2.5% MACE over next 6 weeks - Discharge Home Score 4 - 6: 20.3% MACE over next 6 weeks - Admit for Clinical Observation Score 7 - 10: 72.7% MACE over next 6 weeks - Early Invasive Strategies Course & Med Decision Making: Course & Med Decision Making Pertinent Labs and Imaging studies reviewed. (See chart for details) The patient has a slightly elevated white count of 13. She has a couple of the lab abdominal CT are similar to previous. I have given her Zosyn in the ED and will discharge her on Bactrim and Keflex for 7 days. She is stable for discharge at this time. [] Dragon Disclaimer: Dragon Disclaimer: This electronic medical record was generated, in whole or in part, using a voice recognition dictation system. Departure Departure: Impression: Primary Impression: Cellulitis of left lower leg Additional Impressions: Skin tear of right lower leg without complication Skin tear of left lower leg without complication Disposition: 01 HOME / SELF CARE / HOMELESS Condition: STABLE Referrals: JULIA BALTAZAR MD (PCP) Patient Instructions: Cellulitis, [id number], Skin Tear Care, [id number] Scripts Sulfamethoxazole/Trimethoprim (BACTRIM DS TABLET) 1 Each Tablet 1 TAB PO BID for cellulitis for 7 Days, #14 TAB 0 Refills Prov: CHANDLER PAT DO 05/03/21 Cephalexin (CEPHALEXIN) 500 Mg Tablet 1 TAB PO TID for cellulitis for 7 Days, #21 TAB Prov: CHANDLER PAT DO 05/03/21 CHANDLER PAT DO May 03, 2021 10:58
[2021-05-03 10:59] VITALS: BP 119/61
[2021-05-03] MEDS ORDERED: PIPERACILLIN/TAZOBACTAM 3.375 GM in IV NORMAL SALINE 50ML 50 ML IV ONE (11:00)
[2021-05-03 11:05] LABS: BASO % 0 % (0-3); EOS % 0 % (0-3); HEMOGLOBIN 14.4 g/dL (12.0-15.5); LYMPH # 0.6 x10^3/uL (1.0-4.8); LYMPH % 4 % (24-48); MEAN CORPUSCULAR HEMOGLOBIN 33 pg (25-35); MEAN CORPUSCULAR HGB CONC 34 g/dL (31-37); MEAN CORPUSCULAR VOLUME 98 fL (79-100); MONO # 0.8 x10^3/uL (0.0-1.1); MONO % 6 % (0-9); NEUT # 11.6 x10^3uL (1.8-7.7); NEUT % 90 % (31-73); PLATELET COUNT 117 x10^3/uL (140-400); RED BLOOD COUNT 4.38 x10^6/uL (3.50-5.40); RED CELL DISTRIBUTION WIDTH 14.5 % (11.5-14.5)
[2021-05-03 11:17] LABS: CALCIUM 9.6 mg/dL (8.5-10.1); GFR 53.6; POTASSIUM 4.8 mmol/L (3.5-5.1)
[2021-05-03 11:23] LABS: TOTAL BILIRUBIN 0.4 mg/dL (0.2-1.0)
[2021-05-03] MEDS ORDERED: IV NORMAL SALINE 50ML 50 ML ONE (11:31)
[2021-05-03] MEDS ORDERED: PIPERACILLIN/TAZOBACTAM 3.375 GM VIAL IV ONE (11:31)
[2021-05-03] MEDS ORDERED: SULF1TAB24 PO (12:31)
[2021-05-03] MEDS ORDERED: CEPH500T PO (12:31)
--- NOTE | 2021-05-03 19:05 | EKG ---
[facility] ED [facility] [address] [place] [id number] Test Date: 2021-05-03 Test Time: 10:36:13 Pat Name: RUTH PRINGLE Department: Room: Gender: F Cinder Pitman: [facility] : 1940 Requested By: CHANDLER PAT Order Number: [id number] Reading MD: Measurements Intervals [place] Rate: 91 P: IA: QRS: -30 QRSD: 150 T: -23 QT: 352 QTc: 435 Interpretive Statements ATRIAL FLUTTER ABNORMAL LEFT AXIS DEVIATION NON SPECIFIC INTRAVENTRICULAR BLOCK ABNORMAL ECG RI6.02 Compared to ECG 05/03/2021 10:34:35 Left anterior fascicular block no longer present T-wave abnormality no longer present
== END 2021-05-03 13:00 | disposition home or self-care (01) ==
LOC: ER 10:13
DX: S81.812A Laceration without foreign body, left lower leg, initial encounter (principal); S81.811A Laceration without foreign body, right lower leg, initial encounter; L03.116 Cellulitis of left lower limb; I11.0 Hypertensive heart disease with heart failure; I50.9 Heart failure, unspecified; J44.9 Chronic obstructive pulmonary disease, unspecified; F17.210 Nicotine dependence, cigarettes, uncomplicated; X58.XXXA Exposure to other specified factors, initial encounter; Y93.89 Activity, other specified; Y92.89 Other specified places as the place of occurrence of the external cause; Y99.8 Other external cause status
CPT/HCPCS: 36415; 80053; 84484; 85025; 93005; 96365; 99284; J2543